=== PATIENT | female | born 1960 | race African-American/Black ===

== ENCOUNTER → 2017-10-01 | Outpatient (CLI) | payer OTHER ==
[~2017-10-01] MED LIST: AMLO10 PO; COZA100T PO; DOXA1 PO; LORT5TAB PO; POTA-267 PO; SULF-154 PO
[2017-10-01 10:24] LABS: HEMATOCRIT 38.8 % (35.0-46.0); MEAN CELL VOLUME 78.8 FL (80.0-100.0); MEAN CORPUSCULAR HEMOGLOBIN 25.8 PG (27.0-34.0); MEAN CORPUSCULAR HGB CONC 32.8 % (32.0-36.0); PLATELET COUNT 275 TH/MM3 (150-450); RED BLOOD COUNT 4.93 MIL/MM3 (4.00-5.30); RED CELL DISTRIBUTION WIDTH 14.8 % (11.6-17.2); REVIEW FLAG FINAL; WHITE BLOOD COUNT 6.6 TH/MM3 (4.0-11.0)
[2017-10-01 11:27] LABS: ANION GAP 7 MEQ/L (5-15); AST (GOT) 14 U/L (15-37); BICARBONATE 29.7 MEQ/L (21.0-32.0); BLOOD UREA NITROGEN 22 MG/DL (7-18); CHLORIDE 103 MEQ/L (98-107); GLOMERULAR FILTRATION RATE 84 ML/MIN (>89); GLUCOSE,FASTING 76 MG/DL (74-99); POTASSIUM 3.3 MEQ/L (3.5-5.1); SODIUM (NA) 140 MEQ/L (136-145)
[2017-10-01 11:32] LABS: BACTERIA, URINE RARE /hpf; BLOOD, URINE NEG (NEG); GLUCOSE,URINE NEG (NEG); KETONE, URINE NEG (NEG); MUCUS URINE FEW /lpf (OCC); NITRITE,URINE NEG (NEG); SQUAMOUS EPITHELIAL CELL URINE 26 /hpf (0-5); URINE COLOR YELLOW (YELLW/STRAW)
[2017-10-01 11:55] LABS: ALKALINE PHOSPHATASE 107 U/L (45-117); ALT (GPT) 15 U/L (10-53); THYROXINE (T4) 11.6 MCG/DL (4.8-13.9); TOTAL BILIRUBIN ADULT 0.4 MG/DL (0.2-1.0)
== END ==
LOC: CLAB 08:53
PROVIDERS: ATTEND Internal Medicine
DX: E78.5 Hyperlipidemia, unspecified (principal); I10 Essential (primary) hypertension; D64.9 Anemia, unspecified; R73.02 Impaired glucose tolerance (oral); R63.5 Abnormal weight gain; M81.8 Other osteoporosis without current pathological fracture
CPT/HCPCS: 36415; 80053; 81001; 82607; 82746; 84436; 84443; 85027

== ENCOUNTER 2018-05-03 22:15 | Inpatient (IN) ==
[2018-05-03] MEDS ORDERED: Heparin 10,000 UNITS/10 ML Vial (for IV use) IV.PUSH STA (22:26)
[2018-05-03] MEDS ORDERED: Nitroglycerin Drip Premix 50 MG/250 ML BOTTLE IV.CONT PRN (22:26)
[2018-05-03] MEDS ORDERED: Sod Chloride 0.9% Inj 1,000 ML IV.SIG SCH (22:30)
--- NOTE | 2018-05-03 22:36 | ED ---
HPI General Chief Complaint: STEMI Alert Stated Complaint: STEMI/EVAC Time Seen by Provider: 05/03/18 22:22 Source: patient and EMS Mode of arrival: EMS Limitations: no limitations History of Present Illness HPI narrative: The patient is a 57 year old female who presents to the [facility] emergency department with a history of chest pain that began at 11:30 PM today. The details regarding the chest pain are as below. The patient denies any prior history of myocardial infarction. She reports a prior history of hypertension, prior history of diabetes, however she had a gastric bypass done in 2007 and lost 100 pounds. She reports that she no longer is treated for diabetes. She denies any prior history of hyperlipidemia. The patient reports that the pain became much worse around 30 minutes prior to arrival. She reports that the pain radiates the left arm. She denies having any shortness of breath. She does report having some diaphoresis associated with this. She reports that she has had a stress test done in the past, however it was many years ago. She reports that her primary care physician is Dr. Celestino Waddell. complaint: chest pain Complete Quality Measures for STEMI Alert Patients Onset (ago): hour(s) Duration: intermittent Onset: during rest Pain location: left chest Severity: severe Severity scale (1-10): 10 Quality: heaviness Pain radiation: LUE Relieving factors: nothing Exacerbating factors: exertion Associated symptoms: nausea and diaphoresis Treatments prior to arrival chest pain: aspirin, nitroglycerin and oxygen Related Data On Oral Contraceptives: No Home Medications Medication Instructions Recorded Confirmed amlodipine 10 mg PO DAILY 05/03/18 05/03/18 doxazosin 8 mg PO DAILY 05/03/18 05/03/18 losartan 100 mg PO DAILY 05/03/18 05/03/18 potassium chloride 10 meq PO TID 05/03/18 05/03/18 triamterene-hydrochlorothiazid 1 cap PO DAILY 05/03/18 05/03/18 Allergies Allergy/AdvReac Type Severity Reaction Status Date / Time lisinopril Allergy Severe Swelling Verified 05/04/18 09:14 of Lip/Tongue/Throat Review of Systems ROS Unobtainable All other systems reviewed negative except as stated in HPI Constitutional Denies fever(s) Eyes Denies change in vision ENT Denies headache(s) and Denies nasal congestion Cardiovascular Reports chest pain and Reports radiating jaw, neck or arm pain Respiratory Denies dyspnea Gastrointestinal Denies abdominal pain, Denies diarrhea, Reports nausea and Denies vomiting Genitourinary Denies difficulty voiding Musculoskeletal Denies myalgias Integumentary/Breasts Denies rash Neurologic Denies headache(s) and Denies weakness Psychiatric Denies depression Endocrine Denies polyuria Hematologic/Lymphatic Denies easy bruising PMFSH Social History Social History Substance History: No History of Abuse Second Hand Smoke Exposure: No Smoking Status: Never smoker How Often Do You Have a Drink Containing Alcohol: Never Recent Travel in [facility] within the Last 8 Weeks: No Recent Out of Country Travel within the Last 8 Weeks: No Immunization History Tetanus Immunization: Unable to Assess Hx Influenza Vaccine This Season: Unable to Assess Exam Const General: cooperative, acute distress (Intermittently moaning on arrival) and well hydrated Nutritional Appearance: well nourished Orientation: oriented x3 HENMT Head: normocephalic and atraumatic Nose: no nasal discharge and no epistaxis Mouth: moist mucous membranes Eyes Sclera: normal sclerae Pupils: PERRL Neck Neck: trachea midline and no JVD Resp Effort & Inspection: no use of accessory muscles Auscultation: clear to auscultation bilaterally Cardio Rate: regular rate Rhythm: regular rhythm Heart Sounds: no murmurs GI Inspection: non-distended Palpation: soft, no hepatosplenomegaly and nontender Auscultation: normal bowel sounds Skin General: dry skin (warm) Neuro General: alert and awake Cranial Nerves: CN's II-XI intact bilaterally Speech: speech normal Motor: no movement abnormalities noted Sensory Exam: no sensory deficits noted Extrem General: normal to inspection, no clubbing, no cyanosis, no edema and other (No calf tenderness on palpation.) Psych Mood: congruent mood Affect: normal affect Judgment: judgment good Course Hospital Course: During the course of the patient's emergency department visit, the patient's history, examination, and differential diagnosis were reviewed with the patient. The patient was placed on a engraver machine with oximetry and frequent blood pressure monitoring. The patient had IV access obtained and blood work sent for analysis. The patient had a EKG done on arrival that shows an ST segment elevation RI in the inferior leads with reciprocal changes noted of depression and V2, aVL. A STEMI alert was called upon the patient's arrival based on the initial EKG done by ambulance services which was again confirmed by EKG done at this facility. The patient was provided by ambulance services prior to arrival aspirin 324 mg p.o. 1, sublingual nitroglycerin 3. While in nitroglycerin drip is being obtained for the patient the patient was given a sublingual nitroglycerin. The patient will be given heparin per RI protocol. I spoke to Dr. hinojosa at the provider relations specialist python django developer for STEMI alerts and he plans to take the patient to the to the cardiac catheterization lab emergently. I spoke to him regarding this patient's case at approximately 22:24. Reevaluation(s) Reevaluation #1: The patient was continued to have pain. The patient received a sublingual nitroglycerin and was in the process of having a nitroglycerin drip started and titrated slowly as the patient's blood pressure on initial arrival is 123/81. Time: 22:30 Consultations Consultation #1: The patient's case including history, pertinent physical examination findings, and laboratory studies were discussed with Dr. Bustamante. Time: 22:24 Initial Documented Vital Signs Pulse Oximetry 99 05/03/18 22:17 Last Documented Vital Signs Temperature 97.3 F L 05/04/18 16:00 Pulse Rate 63 05/04/18 16:00 Respiratory Rate 23 05/04/18 16:00 Blood Pressure 132/82 05/04/18 16:00 Pulse Oximetry 96 05/04/18 16:00 Critical Care Time Critical Care Time: Yes Total Critical Care Time: 32 Attestation: Aggregate critical care time was 32 minutes. Time to perform other separately billable procedures was not included in the critical care time. My time did not include minutes spent treating any other patients simultaneously or on activities that did not directly contribute to the patient's treatment. The services I provided to this patient were to treat and/or prevent clinically significant deterioration that could result in: Cardiovascular collapse from cardiac arrhythmia due to cardiac ischemia, versus hypotension from nitroglycerin, versus respiratory failure I provided critical care services requiring my management, as noted below: Chart data review, documentation time, medication orders and management, vital sign assessments/reviewing monitor data, ordering and reviewing lab tests, ordering and interpreting/reviewing x-rays and diagnostic studies, care of the patient and discussion of the patient with the admitting physicians. Medical Decision Making MDM Narrative Medical decision making narrative: The patient's i-STAT with creatinine reveals a sodium of 143, potassium 3.3, chloride 104, BUN 30, glucose 164, hemoglobin 11.2, creatinine 0.9.PT 10.3, PTT 24.1, troponin I 0.09, CPK 120 chest x-ray showed basilar airspace disease, likely related to atelectasis, no other acute abnormality. The patient was taken to the cardiac catheterization lab urgently as a STEMI. Differential Diagnosis Differential Diagnosis: STEMI alert, versus aortic dissection, versus pulmonary embolism, versus non-STEMI Medical Records Medical records reviewed: Yes I reviewed the patient's medical records. Lab Data Lab results reviewed: Yes I reviewed the patient's lab results. Result diagrams: 05/04/18 03:17 05/04/18 03:17 Lab Results 05/03/18 05/03/18 05/03/18 Range/Units 22:23 22:23 22:25 WBC (4.0-11.0) th/mm3 RBC (4.00-5.30) mil/mm3 Hgb (11.6-15.3) gm/dL POC Hgb (Calc) 11.2 L (11.6-15.3) g/dL Hct (35.0-46.0) % POC Hct 33.0 L (35-46.0) % MCV (80.0-100.0) fL MCH (27.0-34.0) pg MCHC (32.0-36.0) % RDW (11.6-17.2) % Plt Count (150-450) th/mm3 MPV (7.0-11.0) fL PT 10.3 (9.8-11.6) sec INR 1.0 Ratio APTT 24.1 L (24.3-30.1) sec Puncture Site Patient Temperature O2 Saturation (90-100) % ABG pH (7.380-7.420) ABG pCO2 (38-42) mmHg ABG pO2 (61-120) mmHG ABG HCO3 (22-26) mmol/L ABG O2 Content (12.0-20.0) Vol % ABG Base Excess (-2-2) mmol/L ABG Methemoglobin (0-2) % Cooper Test Hemoglobin (12.0-16.0) G/DL Carboxyhemoglobin (0-4) % O2 Delivery Device Vent Setting Inspired O2 % Critical Value POC Sodium 143 (137-144) mmol/L Sodium (136-145) meq/L POC Potassium 3.3 L (3.6-5.0) mmol/L Potassium (3.5-5.1) meq/L POC Chloride 104 (102-111) mmol/L Chloride (98-107) meq/L Carbon Dioxide (21.0-32.0) meq/L Anion Gap (5-15) meq/L POC BUN 30 H (5-21) mg/dL BUN (7-18) mg/dL Creatinine (0.50-1.00) mg/dL POC Creatinine 0.9 (0.6-1.3) mg/dL Estimated GFR (>89) mL/min POC Glucose 164 H (68-110) mg/dL Random Glucose (74-106) mg/dL Calcium 8.0 L (8.5-10.1) mg/dL Magnesium 2.7 H (1.5-2.5) mg/dL Total Bilirubin (0.2-1.0) mg/dL AST (15-37) U/L ALT (10-53) U/L Alkaline Phosphatase (45-117) U/L Total Creatine Kinase 120 (26-192) U/L CK-MB (CK-2) 1.6 (0.5-3.6) ng/mL Troponin I 0.09 H (0.02-0.05) ng/mL B-Natriuretic Peptide (0-100) pg/mL Total Protein (6.4-8.2) g/dL Albumin (3.4-5.0) g/dL Urine Color (Yellw/Straw) Urine Clarity (Clear) Urine pH (5.0-8.5) Ur Specific Dustin (1.002-1.035) Urine Protein (Neg-Trace) mg/dL Urine Glucose (UA) (Negative) mg/dL Urine Ketones (Negative) mg/dL Urine Occult Blood (Negative) Urine Nitrate (Negative) Urine Bilirubin (Negative) Urine Urobilinogen (Less than 2) mg/dL Ur Leukocyte Esterase (Negative) Urine RBC (0-3) /hpf Urine WBC (0-5) /hpf Ur Squamous Epith Cells (0-5) /hpf Urine Mucus (Occasional) /lpf Micro UA Comment Urine Culture Comments Nasal Screen MRSA (PCR) (Negative) 05/03/18 05/04/18 05/04/18 Range/Units 22:25 01:53 02:25 WBC (4.0-11.0) th/mm3 RBC (4.00-5.30) mil/mm3 Hgb (11.6-15.3) gm/dL POC Hgb (Calc) (11.6-15.3) g/dL Hct (35.0-46.0) % POC Hct (35-46.0) % MCV (80.0-100.0) fL MCH (27.0-34.0) pg MCHC (32.0-36.0) % RDW (11.6-17.2) % Plt Count (150-450) th/mm3 MPV (7.0-11.0) fL PT (9.8-11.6) sec INR Ratio APTT (24.3-30.1) sec Puncture Site Right radial Patient Temperature 98.6 O2 Saturation 96 (90-100) % ABG pH 7.32 L (7.380-7.420) ABG pCO2 48 H (38-42) mmHg ABG pO2 145 H (61-120) mmHG ABG HCO3 24 (22-26) mmol/L ABG O2 Content 15.2 (12.0-20.0) Vol % ABG Base Excess -1.5 (-2-2) mmol/L ABG Methemoglobin 1.6 (0-2) % Cooper Test Present Hemoglobin 11.1 L (12.0-16.0) G/DL Carboxyhemoglobin 0.5 (0-4) % O2 Delivery Device Ventilator Vent Setting 18/470/it1.0/8peep Inspired O2 100 % Critical Value No POC Sodium (137-144) mmol/L Sodium (136-145) meq/L POC Potassium (3.6-5.0) mmol/L Potassium (3.5-5.1) meq/L POC Chloride (102-111) mmol/L Chloride (98-107) meq/L Carbon Dioxide (21.0-32.0) meq/L Anion Gap (5-15) meq/L POC BUN (5-21) mg/dL BUN (7-18) mg/dL Creatinine (0.50-1.00) mg/dL POC Creatinine (0.6-1.3) mg/dL Estimated GFR (>89) mL/min POC Glucose (68-110) mg/dL Random Glucose (74-106) mg/dL Calcium (8.5-10.1) mg/dL Magnesium (1.5-2.5) mg/dL Total Bilirubin (0.2-1.0) mg/dL AST (15-37) U/L ALT (10-53) U/L Alkaline Phosphatase (45-117) U/L Total Creatine Kinase (26-192) U/L CK-MB (CK-2) (0.5-3.6) ng/mL Troponin I (0.02-0.05) ng/mL B-Natriuretic Peptide 6 (0-100) pg/mL Total Protein (6.4-8.2) g/dL Albumin (3.4-5.0) g/dL Urine Color (Yellw/Straw) Urine Clarity (Clear) Urine pH (5.0-8.5) Ur Specific Dustin (1.002-1.035) Urine Protein (Neg-Trace) mg/dL Urine Glucose (UA) (Negative) mg/dL Urine Ketones (Negative) mg/dL Urine Occult Blood (Negative) Urine Nitrate (Negative) Urine Bilirubin (Negative) Urine Urobilinogen (Less than 2) mg/dL Ur Leukocyte Esterase (Negative) Urine RBC (0-3) /hpf Urine WBC (0-5) /hpf Ur Squamous Epith Cells (0-5) /hpf Urine Mucus (Occasional) /lpf Micro UA Comment Urine Culture Comments Nasal Screen MRSA (PCR) Not detected (Negative) 05/04/18 05/04/18 05/04/18 Range/Units 03:17 03:17 04:15 WBC 8.2 (4.0-11.0) th/mm3 RBC 4.52 (4.00-5.30) mil/mm3 Hgb 11.7 (11.6-15.3) gm/dL POC Hgb (Calc) (11.6-15.3) g/dL Hct 36.0 (35.0-46.0) % POC Hct (35-46.0) % MCV 79.6 L (80.0-100.0) fL MCH 25.8 L (27.0-34.0) pg MCHC 32.4 (32.0-36.0) % RDW 15.6 (11.6-17.2) % Plt Count 219 (150-450) th/mm3 MPV 7.2 (7.0-11.0) fL PT (9.8-11.6) sec INR Ratio APTT (24.3-30.1) sec Puncture Site Patient Temperature O2 Saturation (90-100) % ABG pH (7.380-7.420) ABG pCO2 (38-42) mmHg ABG pO2 (61-120) mmHG ABG HCO3 (22-26) mmol/L ABG O2 Content (12.0-20.0) Vol % ABG Base Excess (-2-2) mmol/L ABG Methemoglobin (0-2) % Cooper Test Hemoglobin (12.0-16.0) G/DL Carboxyhemoglobin (0-4) % O2 Delivery Device Vent Setting Inspired O2 % Critical Value POC Sodium (137-144) mmol/L Sodium 144 (136-145) meq/L POC Potassium (3.6-5.0) mmol/L Potassium 2.8 L* (3.5-5.1) meq/L POC Chloride (102-111) mmol/L Chloride 110 H (98-107) meq/L Carbon Dioxide 25.0 (21.0-32.0) meq/L Anion Gap 9 (5-15) meq/L POC BUN (5-21) mg/dL BUN 24 H (7-18) mg/dL Creatinine 0.89 (0.50-1.00) mg/dL POC Creatinine (0.6-1.3) mg/dL Estimated GFR 79 L (>89) mL/min POC Glucose (68-110) mg/dL Random Glucose 238 H (74-106) mg/dL Calcium 7.6 L (8.5-10.1) mg/dL Magnesium (1.5-2.5) mg/dL Total Bilirubin 0.2 (0.2-1.0) mg/dL AST 65 H (15-37) U/L ALT 25 (10-53) U/L Alkaline Phosphatase 93 (45-117) U/L Total Creatine Kinase (26-192) U/L CK-MB (CK-2) (0.5-3.6) ng/mL Troponin I (0.02-0.05) ng/mL B-Natriuretic Peptide (0-100) pg/mL Total Protein 7.1 (6.4-8.2) g/dL Albumin 3.4 (3.4-5.0) g/dL Urine Color Yellow (Yellw/Straw) Urine Clarity Clear (Clear) Urine pH 5.0 (5.0-8.5) Ur Specific Dustin Greater than 1.060 H (1.002-1.035) Urine Protein Negative (Neg-Trace) mg/dL Urine Glucose (UA) Negative (Negative) mg/dL Urine Ketones Negative (Negative) mg/dL Urine Occult Blood Small H (Negative) Urine Nitrate Negative (Negative) Urine Bilirubin Negative (Negative) Urine Urobilinogen Less than 2 (Less than 2) mg/dL Ur Leukocyte Esterase Negative (Negative) Urine RBC 1 (0-3) /hpf Urine WBC Less than 1 (0-5) /hpf Ur Squamous Epith Cells 2 (0-5) /hpf Urine Mucus Few H (Occasional) /lpf Micro UA Comment Cath-culture not ind Urine Culture Comments Cath-cult not ind Nasal Screen MRSA (PCR) (Negative) 05/04/18 05/04/18 Range/Units 12:18 17:29 WBC (4.0-11.0) th/mm3 RBC (4.00-5.30) mil/mm3 Hgb (11.6-15.3) gm/dL POC Hgb (Calc) (11.6-15.3) g/dL Hct (35.0-46.0) % POC Hct (35-46.0) % MCV (80.0-100.0) fL MCH (27.0-34.0) pg MCHC (32.0-36.0) % RDW (11.6-17.2) % Plt Count (150-450) th/mm3 MPV (7.0-11.0) fL PT (9.8-11.6) sec INR Ratio APTT (24.3-30.1) sec Puncture Site Patient Temperature O2 Saturation (90-100) % ABG pH (7.380-7.420) ABG pCO2 (38-42) mmHg ABG pO2 (61-120) mmHG ABG HCO3 (22-26) mmol/L ABG O2 Content (12.0-20.0) Vol % ABG Base Excess (-2-2) mmol/L ABG Methemoglobin (0-2) % Cooper Test Hemoglobin (12.0-16.0) G/DL Carboxyhemoglobin (0-4) % O2 Delivery Device Vent Setting Inspired O2 % Critical Value POC Sodium (137-144) mmol/L Sodium (136-145) meq/L POC Potassium (3.6-5.0) mmol/L Potassium (3.5-5.1) meq/L POC Chloride (102-111) mmol/L Chloride (98-107) meq/L Carbon Dioxide (21.0-32.0) meq/L Anion Gap (5-15) meq/L POC BUN (5-21) mg/dL BUN (7-18) mg/dL Creatinine (0.50-1.00) mg/dL POC Creatinine (0.6-1.3) mg/dL Estimated GFR (>89) mL/min POC Glucose 114 H 105 (68-110) mg/dL Random Glucose (74-106) mg/dL Calcium (8.5-10.1) mg/dL Magnesium (1.5-2.5) mg/dL Total Bilirubin (0.2-1.0) mg/dL AST (15-37) U/L ALT (10-53) U/L Alkaline Phosphatase (45-117) U/L Total Creatine Kinase (26-192) U/L CK-MB (CK-2) (0.5-3.6) ng/mL Troponin I (0.02-0.05) ng/mL B-Natriuretic Peptide (0-100) pg/mL Total Protein (6.4-8.2) g/dL Albumin (3.4-5.0) g/dL Urine Color (Yellw/Straw) Urine Clarity (Clear) Urine pH (5.0-8.5) Ur Specific Dustin (1.002-1.035) Urine Protein (Neg-Trace) mg/dL Urine Glucose (UA) (Negative) mg/dL Urine Ketones (Negative) mg/dL Urine Occult Blood (Negative) Urine Nitrate (Negative) Urine Bilirubin (Negative) Urine Urobilinogen (Less than 2) mg/dL Ur Leukocyte Esterase (Negative) Urine RBC (0-3) /hpf Urine WBC (0-5) /hpf Ur Squamous Epith Cells (0-5) /hpf Urine Mucus (Occasional) /lpf Micro UA Comment Urine Culture Comments Nasal Screen MRSA (PCR) (Negative) Imaging Data Radiologist's impression: ITS Impressions Chest X-Ray 05/03/18 22:18 CONCLUSION: Minimal basilar atelectasis. No effusion or pneumothorax. Chest X-Ray 05/04/18 01:53 CONCLUSION: 1. ET tube near the fay. 2. NGT beyond the GE junction. 3. Patchy airspace disease in the right lower lung zone, likely atelectasis. ECG Data Attestation: I personally reviewed and interpreted this ECG as follows: Interpretation: The patient had an EKG done she has a sinus rhythm heart rate is 70, QRS duration 117. The patient has acute ST segment elevation noted in lead with T-wave inversions in leads I, aVL, V1, V2, downsloping ST segments in leads I, aVL, ST segment depression in V2. Discharge Plan Discharge Disposition Patient Disposition: 30 Still Patient Discharge Details Discharge Problem: ST elevation myocardial infarction (STEMI) Physicians Team ED Provider: Jammie St Primary Care Provider: Hugo Waddell Attending Provider: Salome Goss Other Providers: Salome Goss Status ED Status: Discharged Discharge Information Discharge Date/Time: 05/03/18 23:52
--- NOTE | 2018-05-03 22:46 | XR ---
EXAM DATE: 05/03/2018 10:36 PM EDT AGE/SEX: 57 years / Female INDICATIONS: STEMI alert. Chest pain. CLINICAL DATA: This is the patient's initial encounter. Patient reports that signs and symptoms have been present for 1 day and indicates a pain score of 10/10. MEDICAL/SURGICAL HISTORY: None. None. COMPARISON: No prior exams available for comparison. FINDINGS: A single AP view of the chest demonstrates the lungs to be symmetrically aerated without evidence of mass, infiltrate or effusion. Minimal basilar atelectasis. The cardiomediastinal contours are unrema rkable. Osseous structures are intact. CONCLUSION: Minimal basilar atelectasis. No effusion or pneumothorax. Electronically signed by: Gutierrez Garcia MD 05/03/2018 10:45 PM EDT
[2018-05-03 22:48] LABS: Activated Partial Thrombo Time 24.1 sec (24.3-30.1)
[2018-05-03 22:49] LABS: Prothrombin Time 10.3 sec (9.8-11.6)
[2018-05-03] MEDS ORDERED: Heparin/NS PF Inj 1,000 ML ONE (22:53)
[2018-05-03] MEDS ORDERED: fentaNYL Citrate Inj 100 MCG/2 ML Ampul ONE (22:54)
[2018-05-03] MEDS ORDERED: Heparin 10,000 UNITS/10 ML Vial (for IV use) ONE (22:55)
[2018-05-03] MEDS ORDERED: Lidocaine PF 1% Inj 30 ML Vial ONE (22:59)
--- NOTE | 2018-05-03 23:42 | MB ---
cc: Salazar Bustamante MD DATE: 05/03/2018 HISTORY OF PRESENT ILLNESS: Ms. Renee is a 57-year-old black female, [employer] employee, who presented to [place] [facility] with substernal chest discomfort, which started at 11:30 this morning. She has history of hypertension and diabetes. She had gastric bypass in 2007 and lost 100 pounds. Her diabetes is now improved. The pain was substernal, radiating into the left arm. She had diaphoresis. She had stress test many years ago. Her physician is Dr. Hugo Waddell. PAST MEDICAL HISTORY: Positive for hypertension, DM, gastric bypass, hernia repair, surgical manipulation of ankle joint. MEDICATIONS: Potassium chloride, amlodipine, losartan, doxazosin, triamterene/hydrochlorothiazide. ALLERGIES: NONE. SOCIAL HISTORY: The patient does not smoke. She does not drink alcohol. FAMILY HISTORY: Negative for heart disease. REVIEW OF SYSTEMS: Otherwise negative. PHYSICAL EXAMINATION: VITAL SIGNS: Blood pressure 123/81, pulse 70 and regular. HEENT: Negative. PULMONARY: Lungs clear. HEART: Regular, no murmur or gallop. ABDOMEN: Soft, morbidly obese. EXTREMITIES: With 1+ edema, 1+ pulses. NEUROLOGIC: Grossly nonfocal. STUDY: EKG is reviewed and showed normal sinus rhythm, inferior ST elevations, with reciprocal ST changes. LABORATORY DATA: Hemoglobin 11.2. INR 1.0. Potassium 3.3, creatinine 0.9. DIAGNOSES: 1. Acute inferior wall myocardial infarction. 2. Hypertension. 3. Morbid obesity. 4. Status post gastric bypass. DISPOSITION: Ms. Renee will undergo emergent cardiac catheterization and coronary intervention. She understands the risks and benefits, and wishes to proceed. MD NIKO Roa/RACHID , 11:17 PM , 11:40 PM MTDD
[2018-05-03] MEDS ORDERED: Tirofiban Inj 12,500 MCG/250 ML PLAST..BAG ONE (23:48)
[2018-05-04 01:09] LABS: Troponin I 0.09 ng/mL (0.02-0.05)
[2018-05-04 01:11] LABS: Creatine Kinase 120 U/L (26-192); Magnesium 2.7 mg/dL (1.5-2.5)
[2018-05-04 01:23] LABS: Creatine Kinase MB 1.6 ng/mL (0.5-3.6)
[2018-05-04] MEDS ORDERED: fentaNYL Citrate Inj 100 MCG/2 ML Ampul ONE (01:27)
[2018-05-04] MEDS ORDERED: Misc Info for Pharmacy OTHER STA (01:28)
--- NOTE | 2018-05-04 01:40 | CATHPROC ---
[facility] HIS Report Study Information Study Number Admission Scheduled Start Study Start [id number] May 03 2018 10:15PM 05/03/2018 May 03 2018 11:00PM [place] [facility] Cardiac Catheterization Admit Source Facility Department Emergency department [facility] - [employer] Foreman Physician and Clinical Staff Initial Salazar King Polymer Tester Mami Hogan RN Circulator Hesher, Sharon,Maria Eugenia Avina RN Other cathlab, cathlab Other Anesthesia, OUT AND OUT CIGAR MAKER HAND Recorder Catalina Turner,COLORING ROOM MAN TECH2 Scrub Ivania HoangRT(R) Procedures Performed Procedure Location (Site) Vessel Name Angiogram LV LV Ventricle Coronary Angiograms LCA Left Coronary Coronary Angiograms RCA Right Coronary PTCA RCA Dist Right Coronary PTCA RCA Mid Right Coronary Stent RCA Mid Right Coronary Wire insertion Fem Art (right) Femoral Art Equipment Time Scientific Software Developer Description Size Mfg Part Number Used/Scraped WIRE, BALANCE MIDDLEWEIGHT [id number] 23:27 [employer] 190CM Used 190CM *[id number] WIRE, WHISPER W/HYDROCOAT [id number] 23:38 [employer] 190CM Used 190CM *[id number] TRANSDUCER, TRUWAVE [id number] 23:22 PABLO DE JESUS * Used W/STOCKCOCK *[id number] *[id number] [id number] *[id number] 534-548T *[id number] 534-520T *[id number] 534-552S *[id number] 00:18 DAIG/[employer]. [employer]OL[employer]ICAL ANGIOSEAL, FR6 VIP FR 6 Used *[id number] 23:22 [employer] BLANKET,WARM AIR CCL * Used *[id number] 23:22 [employer] PACK, CCL CUSTOM * Used *[id number] 23:22 [employer] PACER PEN, SKIN DUAL W/ RULER * Used *[id number] 23:39 MED[employer]IC BALLOON, 2.0 X 12MM EUPHORA 12MM Used *[id number] BALLOON, 5.0 X 12MM NC [id number] 00:08 MEDTRONIC 12MM Used EUPHORA *[id number] EXPORTAP 23:41 [employer] CATHETER, EXPORT ASPIRATON Used *[id number] 00:05 [employer]IC STENT, 4.0 22 INTEGRITY 4.0 22 Used *[id number] [id number] 23:56 [employer] MEDICAL 30 EFFIE INDEFLATOR Used *[id number] 23:31 [employer] MEDICAL SHEATH, FR6.5 PRELUDE 11CM FR 6.5 038ACT Used *[id number] 23:22 [employer] MEDICAL WIRE, 3MMJ .035 180CM 180CM Used *[id number] PROBE COVER, STERILE [id number] 23:22 [employer] MEDICAL * Used ULTRASOUND W/ GEL *[id number] 23:22 NAMIC MANIFOLD, 4 PORT * Used *[id number] 23:22 NAMIC TUBING, HIGH PRESSURE 48" 48" Used *[id number] 23:22 NYCOMED OMNIPAQUE, 350 MG, 150ML 150ML [id number] Used 00:27 [employer]ED OMNIPAQUE, 350 MG, 150ML 150ML [id number] Used 00:27 [employer]ED OMNIPAQUE, 350 MG, 50ML 50ML [id number] Used [id number] 23:22 TERUMO MEDICAL SHEATH, FR5 TERUMO (10CM) FR 5 Used *[id number] WIRE, RUNTHROUGH NS FLOPPY [id number] 23:38 [employer] MEDICAL 180CM Used .014 180CM *[id number] Equipment Model, Serial, Lot Number and Expiration Data Description Model Number Serial Number Lot Number Expiration Date ANGIOSEAL, FR6 VIP [id number] 11-26-2018 CATHETER, EXPORT ASPIRATON [id number] 01-21-2020 STENT, 4.0 22 INTEGRITY [id number] 01-15-2020 History: Risk Factors Family History of Hypertension Dyslipidemia Previous AK Previous Heart Failure Premature CAD Yes No No No No Prior Valve Prior PCI Prior CABG Surgery No No No Cerebrovascular Peripheral Artery Chronic Lung On Dialysis Diabetes Diabetes Therapy Disease Disease Disease No No No No Yes Oral History: Stress Tests Stress or Imaging Studies Performed No History: Other Current Smoker No Labs Hgb (g/dl) Hct (%) 11.60-17.00 35.00-51.00 11.2 33 Glucose (mg/dl) BUN (mg/dl) 74.00-106.00 7.00-18.00 164 30 Na (meq/l) K (meq/l) Cl (meq/l) 136.00-145.00 3.50-5.10 98.00-107.00 143 3.3 104 Medication Medication Total Dose (Bolus/Oral) Medication Total Dosage/Unit 1% XYLOCAINE 20 mL AGGRASTAT BOLUS 635 mL AMIODARONE 300 mg EPINEPHRINE 10/999 0.3 mg FENTANYL 100 mcg HEPARIN 2000 units LIDOCAINE 30 mg OXYGEN 17 l/min VERSED 3 mg Medications (Bolus/Oral) Medication Time Given Dosage/Unit Administered By Reason OXYGEN 05/03/2018 11:15:20 PM 2 l/min Patient arrived on 2 l/min OXYGEN via Nasal. FENTANYL 05/03/2018 11:21:36 PM 25 mcg Hesher, Ivania 25 mcg FENTANYL given in lab by Ivania Glass RN in Left Hand via Peripheral IV. Ordered by Salazar Bustamante. 1% XYLOCAINE 05/03/2018 11:22:09 PM 20 mL Patient arrived on 20 mL 1% XYLOCAINE via Subcutaneous. VERSED 05/03/2018 11:22:50 PM 1 mg Hes, Ivania 1 mg VERSED given in lab by Ivania Glass RN in Left Hand via Peripheral IV. Ordered by Bradley Bustamante. OXYGEN 05/03/2018 11:24:36 PM 15 l/min Hesher Ivania 15 l/min OXYGEN given in lab by Ivania Glass RN via Nasal. Ordered by Salazar Bustamante. HEPARIN 05/03/2018 11:33:23 PM 2000 units Lizandro Glasson 2000 units HEPARIN given in lab by Ivania Glass RN in Left Hand via Peripheral IV. Ordered by Salazar Schultz. VERSED 05/03/2018 11:43:26 PM 1 mg Hes, Ivania 1 mg VERSED given in lab by Ivania Glass RN in Left Hand via Peripheral IV. Ordered by Bradley Bustamante. AGGRASTAT BOLUS 05/03/2018 11:51:25 PM 635 mL Fletcherher, Ivania 635 mL AGGRASTAT BOLUS given in lab by Ivania Glass RN in Left Hand via Peripheral IV. Ordered by Salazar Bustamante. FENTANYL 05/03/2018 11:52:26 PM 25 mcg Fletcherher, Ivania 25 mcg FENTANYL given in lab by Ivania Glass RN in Left Hand via Peripheral IV. Ordered by Salazar Bustamante. FENTANYL 05/04/2018 12:09:32 AM 25 mcg Hesher, Ivania 25 mcg FENTANYL given in lab by Ivania Glass RN in Left Hand via Peripheral IV. Ordered by Salazar Bustamante. VERSED 05/04/2018 12:34:06 AM 1 mg Hesher, Ivania 1 mg VERSED given in lab by Ivania Glass RN in Left Hand via Peripheral IV. Ordered by Bradley Bustamante. FENTANYL 05/04/2018 12:35:15 AM 25 mcg Hesher, Ivania 25 mcg FENTANYL given in lab by Ivania Glass RN in Left Hand via Peripheral IV. Ordered by Salazar Bustamante. AMIODARONE 05/04/2018 1:00:10 AM 150 mg Quan, Ivania 150 mg AMIODARONE given in lab by Ivania Glass RN in Right Hand. Ordered by Salazar Bustamante. AMIODARONE 05/04/2018 1:03:21 AM 150 mg Hesher, Ivania 150 mg AMIODARONE given in lab by Ivania Glass RN in Right Hand. Ordered by Salazar Bustamante. LIDOCAINE 05/04/2018 1:05:20 AM 30 mg Fletcherher, Ivania 30 mg LIDOCAINE given in lab by Ivania Glass RN in Right Hand via Peripheral IV. Ordered by Salazar Rahman. EPINEPHRINE 10/999 05/04/2018 1:15:52 AM 0.3 mg Fletcherher, Ivania 0.3 mg EPINEPHRINE 10/999 given in lab by Ivania Glass RN in Left Hand via Peripheral IV. Ordered by Salazra Bustamante. Medication (Drip) Medication Time Given Dosage/Unit Concentration/Unit Diluent (ml) Solution AGGRASTAT DRIP 05/03/2018 11:56:09 PM 0.15 mcg/kg/min 12.5 mg 250 NaCl .9 0.15 mcg/kg/min AGGRASTAT DRIP given in lab by Ivania Glass RN in Left Hand via Peripheral IV. Pum p/Drip Flow = 22.91 ml/hr using NaCl .9 with a concentration of 12.5 mg in 250 ml. Ordered by Salazar Bustamante. Amiodarone Drip 05/04/2018 1:22:11 AM 33 mL/hr 450 mL 250 NaCl .9 33 mL/hr Amiodarone Drip given in lab by Maria Eugenia Allison, RN in Right Hand via Peripheral IV. Pump/Dr ip Flow = 18.33 ml/hr using NaCl .9 with a concentration of 450 mL in 250 ml. Ordered by Salazar Bustamante. IV Solutions 05/03/2018 11:16:23 PM 0 mL (IV) 1000 NaCl .9 Patient arrived on IV Solutions in Left Hand via Peripheral IV. Pump/Drip Flow = 20 ml/hr using NaCl .9. Initial Case Assessment Cardiovascular HR NIBP 82 100/59 Edema Present Skin color Skin None Normal Warm Dry Neurological State Oriented to time-place- Alert Moves all extremities person Respiration - General Respiration Rate SpO2 (%) O2 (lpm) (B/min) 13 98 2 Final Case Assessment Cardiovascular HR NIBP 87 120/60 Edema Present Skin color Skin None Normal Warm Dry Neurological State Oriented to time-place- Alert Moves all extremities person Respiration - General Respiration Rate SpO2 (%) (B/min) 13 95 Respiration - Ventilator Type Intubation Type ET(oral) Chronological Log Time Study Chronological Log 23:00:35 Emergency Room notified that [employer] Foreman is ready. 23:00:40 MD arrived. 23:04:05 Patient arrived via Bed. 23:04:06 Patient Name, D.O.B, / Armband Verified By R.N. Vitals capture started with the following parameters, Patient=Adult, Interval=5 min, Initial Pr wjxizf=944 mmHg, 23:13:16 Deflation Rate=5 mmHg, Cuff placed on Right Arm 23:14:03 NIBP STAT measurement started. 23:14:32 HR=73 bpm, PIBN=881/74 mmhg, LhW6=743.0 %, Resp=14 B/min, Pain=9, Ezequiel=10, Carey=2 23:15:20 Patient arrived on 2 l/min OXYGEN via Nasal. 23:16:05 Pressure channel 1 zeroed. 23:16:14 Consent signed by the physician and the patient and verified by the [employer] Foreman staff. 23:16:15 Pre-op and post- op instructions given; patient acknowledges understanding of instructions. 23:16:17 Patient has been NPO for More than 6Hrs. 23:16:18 Skin Breakdown- 23:16:20 Disposable Defibrillator Pads Placed On Patient. 23:16:21 A # 20 IV was noted in the Hand (right). Grade = 0 23:16:22 A # 18 IV was noted in the Hand (left). Grade = 0 23:16:23 Patient arrived on IV Solutions in Left Hand via Peripheral IV. Pump/Drip Flow = 20 ml/hr u sing NaCl .9. 23:16:24 History and physical on the chart or being dictated. 23:16:28 Reference ECG taken 23:20:15 Ventricular Fibrillation noted. 23:20:20 Patient defibrillated at 200 joules. The ECG rhythm was noted as V-Fib. 23:20:22 HR=82 bpm, RIPF=415/59 mmhg, SpO2=98.0 %, Resp=13 B/min, Pain=9, Ezequiel=10, Carey=2 Assessment: Initial Case, HR=82 BPM, OXJD=538/59 mmhg, Edema=None, Color=Normal, Skin = Warm, D ry 23:20:24 Neurological: State=Alert, Ox3, CHA Respiration: Resp=13 B/min, SpO2=98 %, O2=2 lpm 23:21:36 25 mcg FENTANYL given in lab by Ivaina Glass RN in Left Hand via Peripheral IV. Ordered by Salazar Bustamante. Time Out. Correct patient, correct procedure, correct physician, labs, allergies, and equipment verified with slab conditioner supervisor 23:22:07 team present. Fire risk assesment completed (see hard stop sheet for coding). Time Out Conc urred by and individual staff in procedure. 23:22:08 Case Start 23:22:09 Patient arrived on 20 mL 1% XYLOCAINE via Subcutaneous. 23:22:50 1 mg VERSED given in lab by Ivania Glass RN in Left Hand via Peripheral IV. Ordered by Salazar Frances. 23:23:48 Access site was Right Femoral Artery. 23:23:49 A SHEATH, FR5 TERUMO (10CM) FR 5 was advanced into the Fem Art (right) using the Modified S eldinger technique. 23:24:26 HR=63 bpm, AAIB=992/75 mmhg, SpO2=93.0 %, Resp=9 B/min, Pain=9, Ezequiel=10, Carey=2 23:24:36 15 l/min OXYGEN given in lab by Ivania Glass RN via Nasal. Ordered by Salazar Bustamante. A AR MOD INFINITI CATHETER FR 5 was advanced over a wire. OMNIPAQUE, 350 MG, 150ML 150ML was us ed for 23:25:08 injections. 23:25:29 The RCA was injected and visualized at various angles. OMNIPAQUE, 350 MG, 150ML 150ML used . 23:28:57 HR=57 bpm, YSFW=820/73 mmhg, KxX5=129.0 %, Resp=19 B/min, Pain=9, Ezequiel=10, Carey=2 23:29:15 Catheter was removed A JL 4.0 INFINITI CATHETER FR 5 was advanced over a wire. OMNIPAQUE, 350 MG, 150ML 150ML was us ed for 23:29:16 injections. 23:29:22 The LCA was injected and visualized at various angles. OMNIPAQUE, 350 MG, 150ML 150ML used . 23:30:23 Catheter was removed A SHEATH, FR6.5 PRELUDE 11CM FR 6.5 was exchanged in the Fem Art (right). This was necessary in order for 23:30:34 catheter support. 23:32:34 A AR 1 GUIDE CATHETER FR 6 was advanced over a wire. OMNIPAQUE, 350 MG, 150ML 150ML was use d for injections. 23:33:23 2000 units HEPARIN given in lab by Ivania Glass RN in Left Hand via Peripheral IV. Order ed by Salazar Bustamante. 23:33:58 HR=74 bpm, FQZY=710/77 mmhg, QmO6=714.0 %, Resp=10 B/min, Pain=9, Ezequiel=10, Carey=2 23:34:08 A WIRE, BALANCE MIDDLEWEIGHT 190CM 190CM was inserted via Fem Art (right). Recorded Pressure: Ao, HR=76, Condition=Condition 1 23:34:23 (Aorta) Ao 95/62/77 23:38:35 The previous wire was exchanged for a WIRE, RUNTHROUGH NS FLOPPY .014 180CM 180CM. 23:38:59 HR=86 bpm, HDIA=312/59 mmhg, EsO2=752.0 %, Resp=11 B/min, Pain=9, Ezequiel=10, Carey=2 23:40:51 Interventional wire has crossed the lesion 23:41:18 ACT (Normal Range 90-180) = 250 23:41:30 Aspiration catheter inserted 23:41:37 Aspiration in progress 23:43:26 1 mg VERSED given in lab by Ivania Glass RN in Left Hand via Peripheral IV. Ordered by Salazar Frances. 23:44:21 Aspiration Catheter was removed 23:44:31 HR=82 bpm, WZSI=631/64 mmhg, RxR3=998.0 %, Resp=18 B/min, Pain=9, Ezequiel=10, Carey=2 23:48:57 HR=86 bpm, LGXD=368/74 mmhg, UgU2=216.0 %, Resp=9 B/min, Pain=9, Ezequiel=10, Carey=2 23:49:03 Activated Clotting Time Drawn 23:49:37 Aspiration catheter inserted 23:50:40 Aspiration in progress 635 mL AGGRASTAT BOLUS given in lab by Ivania Glass RN in Left Hand via Peripheral IV. Order ed by Robby 23:51:25 Salazar. 23:52:26 25 mcg FENTANYL given in lab by Ivania Glass RN in Left Hand via Peripheral IV. Ordered by Salazar Bustamante. 23:52:59 Aspiration Catheter was removed 23:53:24 ACT (Normal Range 90-180) = 260 23:54:02 HR=85 bpm, SOJH=071/64 mmhg, SoE9=657.0 %, Resp=20 B/min, Pain=9, Ezeuqiel=10, Carey=2 A BALLOON, 2.0 X 12MM EUPHORA 12MM was inserted over WIRE, RUNTHROUGH NS FLOPPY .014 180CM 180C M via 23:54:38 the RCA Mid. A BALLOON, 2.0 X 12MM EUPHORA 12MM over a WIRE, RUNTHROUGH NS FLOPPY .014 180CM 180CM in the RC A Mid 23:55:48 was inflated using a 30 EFFIE INDEFLATOR at 8 effie for 30 sec. 0.15 mcg/kg/min AGGRASTAT DRIP given in lab by Ivania Glass RN in Left Hand via Peripheral I V. Pump/Drip Flow 23:56:09 = 22.91 ml/hr using NaCl .9 with a concentration of 12.5 mg in 250 ml. Ordered by You Bustamante ar. A BALLOON, 2.0 X 12MM EUPHORA 12MM over a WIRE, RUNTHROUGH NS FLOPPY .014 180CM 180CM in the RC A Mid 23:56:19 was inflated using a 30 EFFIE INDEFLATOR at 16 effie for 25 sec. A BALLOON, 2.0 X 12MM EUPHORA 12MM over a WIRE, RUNTHROUGH NS FLOPPY .014 180CM 180CM in the RC A Mid 23:56:50 was inflated using a 30 EFFIE INDEFLATOR at 16 effie for 10 sec. A BALLOON, 2.0 X 12MM EUPHORA 12MM over a WIRE, RUNTHROUGH NS FLOPPY .014 180CM 180CM in the RC A Mid 23:57:01 was inflated using a 30 EFFIE INDEFLATOR at 16 effie for 8 sec. 23:58:51 Balloon Removed. 23:58:59 HR=93 bpm, KBZG=353/73 mmhg, BgO7=644.0 %, Resp=12 B/min, Pain=9, Ezequiel=10, Carey=2 A BALLOON, 2.0 X 12MM EUPHORA 12MM was inserted over WIRE, RUNTHROUGH NS FLOPPY .014 180CM 180C M via 0:03:22 the RCA Mid. 0:04:04 HR=92 bpm, GJOE=105/77 mmhg, JyE9=070.0 %, Resp=13 B/min, Pain=9, Ezequiel=10, Carey=2 0:06:00 Balloon Removed. An STENT, 4.0 22 INTEGRITY 4.0 22 Bare Metal Stent was inserted through a AR 1 GUIDE CATHETER F R 6 over a 0:06:14 WIRE, RUNTHROUGH NS FLOPPY .014 180CM 180CM. A STENT, 4.0 22 INTEGRITY 4.0 22 was deployed using a 30 EFFIE INDEFLATOR at 19 atmospheres for 5 4 seconds in 0:07:13 the RCA Mid. 0:09:03 HR=82 bpm, RCDC=923/75 mmhg, GiZ4=343.0 %, Resp=14 B/min, Pain=9, Ezequiel=10, Carey=2 0:09:32 25 mcg FENTANYL given in lab by Ivania Glass, RN in Left Hand via Peripheral IV. Ordered b Salazar Brewer. 0:09:41 Delivery device removed A BALLOON, 5.0 X 12MM NC EUPHORA 12MM was inserted over WIRE, RUNTHROUGH NS FLOPPY .014 180CM 18 0CM 0:10:00 via the RCA Mid. A BALLOON, 5.0 X 12MM NC EUPHORA 12MM over a WIRE, RUNTHROUGH NS FLOPPY .014 180CM 180CM in the RCA 0:12:42 Mid was inflated using a 30 EFFIE INDEFLATOR at 12 effie for 15 sec. 0:14:04 HR=85 bpm, IDHA=299/70 mmhg, OrY6=551.0 %, Resp=30 B/min, Pain=9, Ezequiel=10, Carey=2 A BALLOON, 5.0 X 12MM NC EUPHORA 12MM over a WIRE, RUNTHROUGH NS FLOPPY .014 180CM 180CM in the RCA 0:14:40 Mid was inflated using a 30 EFFIE INDEFLATOR at 16 effie for 40 sec. A BALLOON, 5.0 X 12MM NC EUPHORA 12MM over a WIRE, RUNTHROUGH NS FLOPPY .014 180CM 180CM in the RCA 0:15:46 Mid was inflated using a 30 EFFIE INDEFLATOR at 16 effie for 30 sec. 0:16:52 Balloon Removed. 0:19:05 HR=86 bpm, UQNO=891/72 mmhg, ZoL7=294.0 %, Resp=15 B/min, Pain=9, Ezequiel=10, Carey=2 0:24:04 HR=93 bpm, WLMO=955/88 mmhg, MaF5=455.0 %, Resp=14 B/min, Pain=9, Ezequiel=10, Carey=2 0:24:29 Wire removed 0:24:52 Catheter was removed A [facility] GUIDE CATHETER FR 6 was advanced over a wire. OMNIPAQUE, 350 MG, 150ML 150ML was used for 0:25:23 injections. 0:26:43 The RCA was injected and visualized at various angles. OMNIPAQUE, 350 MG, 150ML 150ML used. 0:27:47 A WIRE, BALANCE MIDDLEWEIGHT 190CM 190CM was inserted via Fem Art (right). 0:29:36 HR=93 bpm, BBZZ=476/84 mmhg, YnP2=167.0 %, Resp=20 B/min, Pain=9, Ezequiel=10, Carey=2 A BALLOON, 2.0 X 12MM EUPHORA 12MM was inserted over WIRE, BALANCE MIDDLEWEIGHT 190CM 190CM via the 0:30:21 RCA Dist. A BALLOON, 2.0 X 12MM EUPHORA 12MM over a WIRE, BALANCE MIDDLEWEIGHT 190CM 190CM in the RCA Dist was 0:33:14 inflated using a 30 EFFIE INDEFLATOR at 2 effie for 30 sec. 0:33:55 Balloon Removed. 0:34:02 HR=86 bpm, SGIS=248/87 mmhg, TnH7=265.0 %, Resp=8 B/min, Pain=9, Ezequiel=10, Carey=2 0:34:06 1 mg VERSED given in lab by Ivania Glass, EULALIA in Left Hand via Peripheral IV. Ordered by Salazar Platt. 0:35:15 25 mcg FENTANYL given in lab by Ivania Glass RN in Left Hand via Peripheral IV. Ordered b Salazar Brewer. 0:36:01 Wire removed 0:36:13 Catheter was removed A PIGTAIL ANG. INFINITI CATHETER FR 5 was advanced over a wire. OMNIPAQUE, 350 MG, 150ML 150ML w as used 0:37:17 for injections. 0:39:03 LS=529 bpm, TQBQ=611/83 mmhg, WcR2=568.0 %, Resp=11 B/min, Pain=9, Ezequiel=10, Carey=2 0:39:40 The LV was injected at 10 cc/sec for a total of 30. OMNIPAQUE, 350 MG, 50ML 50ML used. Recorded Pressure: LV, Ao, HR=88, Condition=Condition 1 0:40:27 (Left Ventricle) LV 110/13/24, (Aorta) Ao 109/65/82 Recorded Pressure: LV, AY=251, Condition=Condition 1 0:40:30 (Left Ventricle) LV 107/17/23 0:41:14 Catheter was removed 0:41:31 An injection in the Fem Art (right) was made through the SHEATH, FR6.5 PRELUDE 11CM FR 6.5. 0:42:55 Catheter(s) removed without difficulty 0:42:57 ANGIOSEAL, FR6 VIP FR 6 placement in the Fem Art (right) 0:44:07 KI=345 bpm, ZHHP=024/84 mmhg, HxG9=476.0 %, Resp=16 B/min, Pain=9, Ezequiel=10, Carey=2 0:44:18 Case End (Physician broke scrub) 0:44:23 Sterile dressing applied to site 0:44:27 No case complications noted. 0:44:28 Cine recording checked. 0:47:09 Implantable Device card placed in patient's chart. 0:47:12 Bedside Report will be given. 0:49:03 HR=92 bpm, HESN=875/98 mmhg, PiR7=537.0 %, Resp=19 B/min, Pain=9, Ezequiel=10, Carey=2 0:54:46 Ventricular Fibrillation noted. 0:54:48 Patient defibrillated at ~JOULES~ joules. The ECG rhythm was noted as ~ARRHYTHMIAS~. 0:54:51 Ventricular Fibrillation noted. 0:54:55 Patient defibrillated at 300 joules. The ECG rhythm was noted as V-Fib. 0:54:57 Ventricular Fibrillation noted. 0:58:24 NIBP STAT measurement started. 1:00:10 150 mg AMIODARONE given in lab by Ivania Glass RN in Right Hand. Ordered by You Bustamante. 1:00:26 HR=82 bpm, CLWG=146/83 mmhg, AdV6=512 %, Resp=20 B/min, Pain=9, Ezequiel=10, Carey=2 1:03:21 150 mg AMIODARONE given in lab by Ivania Glass RN in Right Hand. Ordered by You Bustamante. 1:05:20 30 mg LIDOCAINE given in lab by Ivania Glass RN in Right Hand via Peripheral IV. Ordered by Salazar Bustamante. 1:06:15 Patient defibrillated at 300 joules. The ECG rhythm was noted as V-Fib. 1:08:22 Patient defibrillated at 300 joules. The ECG rhythm was noted as V-Fib. 1:09:28 Patient defibrillated at 360 joules. The ECG rhythm was noted as V-Fib. 1:11:34 Patient defibrillated at 360 joules. The ECG rhythm was noted as V-Fib. 0.3 mg EPINEPHRINE 10/999 given in lab by Ivania Glass RN in Left Hand via Peripheral IV. Ord ered by Robby, 1:15:52 [place]. 33 mL/hr Amiodarone Drip given in lab by Maria Eugenia Allison, RN in Right Hand via Peripheral IV. Pu mp/Drip Flow = 1:22:11 18.33 ml/hr using NaCl .9 with a concentration of 450 mL in 250 ml. Ordered by Salazar Bustamante. 1:23:14 Oral Intubation Performed Vitals capture started with the following parameters, Patient=Adult, Interval=5 min, Initial Pre intey=379 mmHg, 1:25:05 Deflation Rate=5 mmHg, Cuff placed on Right Arm 1:25:53 HR=87 bpm, NOJM=323/60 mmhg, SpO2=95 %, Resp=12 B/min, Pain=9, Ezequiel=10, Carey=2 Assessment: Final Case, HR=87 BPM, NLAW=880/60 mmhg, Edema=None, Color=Normal, Skin = Warm, Dry 1:29:32 Neurological: State=Alert, Ox3, CHA Respiration: Resp=13 B/min, SpO2=95 %, Type=ET(Oral) 1:30:40 HR=86 bpm, NIBP=99/50 mmhg, SpO2=98.0 %, Resp=8 B/min, Pain=9, Ezequiel=10, Carey=2 PCI QA completed: Pre-Magdi - 0, Post Magdi - 3, Type - ~TYPE~, Length - 18 mm, Morphology - ~MORP HOLOGY~, 1:30:53 Indications - ~INDICATIONS~, Pre-Stenosis - 100% and Post Stenosis - 0%. 1:30:54 PCI QA obtained from Network Liaison 1:31:36 Patient moved to [facility] End Study - Contrast Media Used In Study Contrast Total Opened (mL) Total Used (mL) Total Wasted (mL) Omnipaque 225 225 0 End Study - Radiation Exposure Fluoro Time (minutes) 29.2 End Study - Patient Disposition Complications Transferred To Interventional Outcome No Critical Care Bed successful
[2018-05-04] MEDS ORDERED: Thrombin Topical Soln 5,000 UNIT Vial TOPICAL ONE (02:18)
[2018-05-04] MEDS ORDERED: Propofol 1000 mg/100 ml Inj 1,000 MG/100 ML BOTTLE IV.CONT PRN (02:22)
[2018-05-04 02:35] LABS: ABG Base Excess -1.5 mmol/L (-2-2); ABG PCO2 48 mmHg (38-42); ABG PO2 145 mmHG (61-120)
[2018-05-04] MEDS ORDERED: Diphtheria/Tetanus/Pertussis Vaccine Inj 0.5 ML Syringe IM ONE (02:45)
--- NOTE | 2018-05-04 02:54 | P.HPCC ---
History of Present Illness Primary Care Physician: Hugo Waddell MD History of Present Illness: Patient is intubated and not able to provide past medical history. History obtained by review of EMR and discussion with Dr. Bustamante. 57-year-old -[place] female with past medical history of hypertension, obesity, previous type II diabetes mellitus that resolved following gastric bypass, who presents to [facility] emergency department with chest pain radiating to her left arm. EKG demonstrated inferior wall STEMI. She was taken emergently to cardiac laboratory inspector by Dr. Bustamante. She had episode of V fib and was shocked prior to cath. She was revascularized satisfactorily following thrombectomy, angioplasty and a bare metal stent to mid RCA . Preserved ejection fraction noted during cath. Upon completion of cath, she was reportedly alert and communicative, then had multiple episodes of V fib and was shocked 6-8 times. She received amiodarone 300 mg IV, lidocaine 100mg IV . Dr. Bustamante called to request critical care to admit as patient would require intubation for recurrent V fib. Upon arrival she would open eyes intermittently , was being bagged by laboratory inspector nurse, sats 100%. She had large amount of blood emanating from mouth and into BVM as she had bitten her tongue during the initial episode of V fib. Set up suction and suctioned oropharynx. I set up airway equipment however RSI drugs not available and patient still with significant gag reflex. public works laborer called anesthesiology who brought propofol and succinylcholine and intubated patient. Started on amiodarone drip, continued on Aggrastat. - Diagnosis (1) ST elevation (STEMI) myocardial infarction involving right coronary artery (2) Ventricular fibrillation (3) Stented coronary artery (4) Acute respiratory failure with hypoxia (5) Obesity, morbid, BMI 50 or higher (6) Hyperglycemia (7) Hypokalemia (8) HTN (hypertension) (9) Laceration of tongue Inpatient Certification: I certify that the inpatient services were ordered in accordance with Medicare regulations governing the order. This includes certification that hospital inpatient services are reasonable and necessary and in the case of services not specified as inpatient-only under 42 CFR 419.22(n), that they are appropriately provided as inpatient services in accordance to with the 2-midnight benchmark under 43 CFR 412.3(e) [facility] - History History Provided By: Medical Record - Medical / Surgical Hx Neg / Unobtainable Medical Problems Denied: Unable to Obtain Surgical History: Unable to Obtain - Medical History Medical History: Medical History (Last Reviewed 05/04/18 @ 04:57 by Salome Goss MD) History of stress test Hypertension - Surgical History Surgical History: Surgical History (Last Reviewed 05/04/18 @ 04:57 by Salome Goss MD) H/O gastric bypass H/O hernia repair Status post surgical manipulation of ankle joint - Tobacco History Second Hand Smoke Exposure: No Tobacco Use In Past 30 Days: No Smoking Status: Never smoker - Alcohol History How Often Do You Have a Drink Containing Alcohol: Never - Substance Use History Substance History: No History of Abuse - Travel History Recent Travel in the [place] Within the Last 8 Weeks: No Recent Travel Out of the Country Within the Last 8 Weeks: No - Immunization History Tetanus Immunization: Unable to Assess Hx Influenza Vaccine This Season: Unable to Assess Medications and Allergies Active Medications: Active Medications Aspirin (Aspirin Chew) 162 mg PO DAILY VEENA Atorvastatin Calcium (Lipitor) 80 mg PO HS VEENA Carvedilol (Coreg) 3.125 mg PO BID VEENA Diphtheria/Tetanus/Acell Pertussis (Infanrix Peds Inj) 0.5 ml IM .ONCE ONE Stop: 05/04/18 03:31 Nitroglycerin/Dextrose (Nitroglycerin Drip Premix) 50 mg in 250 mls @ 0 mls/hr IV.CONT TITRATE PRN; Protocol PRN Reason: Per Protocol Last Admin: 05/03/18 22:50 Dose: 5 mcg/min, 1.5 mls/hr Sodium Chloride (Ns Inj) 1,000 mls @ 30 mls/hr IV.SIG .Q24H [facility] Stop: 05/04/18 22:29 Last Admin: 05/03/18 22:49 Dose: 30 mls/hr Amiodarone HCl 450 mg/ (Dextrose) 250 mls @ 33.33 mls/hr IV.CONT .Q7H31M [facility]; Protocol Tirofiban/Sodium Chloride (Aggrastat Inj) 12,500 mcg in 250 mls @ 11.4 mls/hr IV.CONT .[id number] [facility]; Protocol Propofol (Diprivan 1000 Mg/100 Ml Inj) 1,000 mg in 100 mls @ 4.29 mls/hr IV.CONT TITRATE PRN; Protocol PRN Reason: Per Protocol Lisinopril (Prinivil) 2.5 mg PO DAILY VEENA Prasugrel (Effient) 10 mg PO DAILY VEENA Sodium Chloride (Ns Flush) 2 ml IV.FLUSH PRN PRN PRN Reason: FLUSH AFTER USING IV ACCESS Sodium Chloride (Ns Flush) 2 ml IV.FLUSH BID VEENA Sodium Chloride (Ns Flush) 2 ml IV.FLUSH PRN PRN PRN Reason: FLUSH AFTER USING IV ACCESS Allergies Allergy/AdvReac Type Severity Reaction Status Date / Time No Known Allergies Allergy Unverified 05/03/18 22:29 Home Medications Medication Instructions Recorded Confirmed Type amlodipine 10 mg PO DAILY 05/03/18 05/03/18 History doxazosin 8 mg PO DAILY 05/03/18 05/03/18 History losartan 100 mg PO DAILY 05/03/18 05/03/18 History potassium chloride 10 meq PO TID 05/03/18 05/03/18 History triamterene-hydrochlorothiazid 1 cap PO DAILY 05/03/18 05/03/18 History Results - Labs CBC & Chem 7: 05/04/18 03:17 05/04/18 03:17 Labs: BMP 05/03/18 22:23 Calcium 8.0 L Cardiac Enzymes 05/03/18 Range/Units 22:23 Total Creatine Kinase 120 (26-192) U/L CK-MB (CK-2) 1.6 (0.5-3.6) ng/mL Troponin I 0.09 H (0.02-0.05) ng/mL - Imaging Impressions Chest X-Ray 05/03/18 22:18 CONCLUSION: Minimal basilar atelectasis. No effusion or pneumothorax. Exam Vital signs: Vital Signs 05/03/18 22:17 05/03/18 22:18 05/03/18 22:23 Temperature 98.2 F 98.2 F Pulse Rate 79 70 Respiratory Rate 22 22 Blood Pressure 119/77 123/81 Pulse Oximetry 99 98 98 05/03/18 22:27 05/04/18 02:00 Temperature Pulse Rate Respiratory Rate 18 Blood Pressure Pulse Oximetry 98 99 Intake & Output 05/03/18 05/03/18 05/04/18 06:59 18:59 06:59 Weight 143 kg Other: Weight On Admission 143 kg Narrative: GENERAL: Obese -Albanian female now orotracheally intubated. SKIN: Warm and dry, adequately perfused. HEAD: Atraumatic. Normocephalic. EYES: Pupils equal and round, 3 mm and reactive to 2 mm bilaterally.. No scleral icterus. No injection or drainage. ENT: No nasal bleeding. Tongue lacerations are noted on lateral aspect of tongue bilaterally as well as a smaller laceration on the tip of the tongue. Tissue is macerated with oozing from edges and not amenable to suture repair. These are actively bleeding with pooling of venous blood in posterior oropharynx. NECK: Trachea midline. No JVD. CARDIOVASCULAR: Regular rate and rhythm, sinus on monitor now with rate in 60s following sedation,. No murmurs rubs or gallops. RESPIRATORY: Orotracheally intubated, clear secretions with suctioning. Rhonchorous breath sounds bilaterally, diminished bibasilar. GASTROINTESTINAL: Abdomen obese, soft, nontender. Vertical scar at and below umbilicus is well healed. Bowel sounds sluggish. MUSCULOSKELETAL: Extremities without clubbing, cyanosis, or edema. NEUROLOGICAL: Awake and alert, opens eyes spontaneously makes eye contact. Nods in response to questioning. Follows commands with all extremities.. Caprini VTE Risk Assessment Caprini VTE Risk Assessment: Moderate/High Risk (score >= 2) VTE Pharmacological Exception Reason: Active bleeding Caprini Risk Assessment Model: Point Value = 1 Point Value = 2 Point Value = 3 Point Value = 5 Age 41-60 Minor surgery BMI > 25 kg/m2 Swollen legs Varicose veins or History of unexplained or recurrent spontaneous Oral contraceptives or hormone replacement Sepsis (< 1 month) Serious lung disease, including pneumonia (< 1 month) Abnormal pulmonary function Acute myocardial infarction Congestive heart failure (< 1 month) History of inflammatory bowel disease Medical patient at bed rest Age 61-74 Arthroscopic surgery Major open surgery (> 45 min) Laparoscopic surgery (> 45 min) Malignancy Confined to bed (> 72 hours) Immobilizing plaster cast Central venous access Age >= 75 History of VTE Family history of VTE Factor V Leiden Prothrombin [id number] Lupus anticoagulant Anticardiolipin antibodies Elevated serum homocysteine Heparin-induced thrombocytopenia Other congenital or acquired thrombophilia Stroke (< 1 month) Elective arthroplasty Hip, pelvis, or leg fracture Acute spinal cord injury (< 1 month) Prophylaxis Regimen: Total Risk Factor Score Risk Level Prophylaxis Regimen 0-1 Low Early ambulation 2 Moderate Order ONE of the following: *Sequential Compression Device (SCD) *Heparin 5000 units SQ BID 3-4 Higher Order ONE of the following medications: *Heparin 5000 units SQ TID *Enoxaparin/Lovenox 40 mg SQ daily (WT < 150 kg, CrCl > 30 mL/min) *Enoxaparin/Lovenox 30 mg SQ daily (WT < 150 kg, CrCl > 10-29 mL/min) *Enoxaparin/Lovenox 30 mg SQ BID (WT < 150 kg, CrCl > 30 mL/min) AND/OR *Sequential Compression Device (SCD) 5 or more Highest Order ONE of the following medications: *Heparin 5000 units SQ TID (Preferred with Epidurals) *Enoxaparin/Lovenox 40 mg SQ daily (WT < 150 kg, CrCl > 30 mL/min) *Enoxaparin/Lovenox 30 mg SQ daily (WT < 150 kg, CrCl > 10-29 mL/min) *Enoxaparin/Lovenox 30 mg SQ BID (WT < 150 kg, CrCl > 30 mL/min) AND *Sequential Compression Device (SCD) Assessment and Plan - Problem List (1) ST elevation (STEMI) myocardial infarction involving right coronary artery Code(s): I21.11 - ST elevation (STEMI) myocardial infarction involving right coronary artery Status: Acute (2) Ventricular fibrillation Code(s): I49.01 - Ventricular fibrillation Status: Acute (3) Stented coronary artery Code(s): Z95.5 - Presence of coronary angioplasty implant and graft Status: Acute (4) Acute respiratory failure with hypoxia Code(s): J96.01 - Acute respiratory failure with hypoxia Status: Acute (5) Obesity, morbid, BMI 50 or higher Code(s): E66.01 - Morbid (severe) obesity due to excess calories Status: Chronic (6) Hyperglycemia Code(s): R73.9 - Hyperglycemia, unspecified Status: Acute (7) Hypokalemia Code(s): E87.6 - Hypokalemia Status: Acute (8) HTN (hypertension) Code(s): I10 - Essential (primary) hypertension Status: Acute (9) Laceration of tongue Code(s): S01.512A - Laceration without foreign body of oral cavity, initial encounter Status: Acute - Assessment and Plan Plan: NEURO: Propofol for sedation Fentanyl for analgosedation Target RASS -2. Neurologically alert and following commands following in hospital V-fib arrest. Does not meet criteria for induced therapeutic hypothermia. RESP: Acute respiratory failure Intubated with Glidescope for airway protection/V fib Vent bundle PRVC tidal volume 470, rate 20, PEEP 8, I time 1, FiO2 60% ET tube retracted 1 cm following chest x-ray. Appears aspirated in right lower lobe (maybe aspiration of blood from tongue laceration). CV: Inferior STEMI now s/p thrombectomy, angioplasty and bare metal RCA stent Recurrent ventricular fibrillation Hypertension Defibrillated multiple times for V. fib. Received amiodarone total 300 mg IV bolus, lidocaine 100 mg IV. Continue amiodarone drip. Preserved EF during cath. Continue Aggrastat drip per cardiology. Effient 60 mg load now via OG tube then 10 mg daily. Aspirin 162 mg daily Lipitor 80 mg p.o. daily Coreg 3.125 mg p.o. twice daily GI: Morbid obesity Status post gastric bypass Orogastric tube inserted. LIWS for now. FEN/RENAL: Hypokalemia Insert Hdz to monitor intake and output hourly following V. fib arrest. LR with 20 mEq of KCl per liter at 75 mL/h Electrolyte replacement per ICU electrolyte protocol ID: Monitor for signs and symptoms of infection. Appears she likely aspirated. Would hold off on antibiotics currently as this represents chemical pneumonitis. HEME: Initial hemoglobin 11.7 with normal platelet count and coags. Monitor CBC ENDO: Acute hyperglycemia Previously history of diabetes mellitus but reportedly this has been controlled following weight loss Monitor bedside glucose every 6 hours and administer low-dose insulin sliding scale as indicated. HEENT: Tongue lacerations bilaterally Irrigated and evaluated, not amenable to suture repair. Continuously bleeding and pooling blood in posterior oropharynx. I applied topical thrombin diluted to 100 units/mL ~20 mL and applied manual pressure until adequate hemostasis obtained. Tdap administered. PROPH: SCDs for DVT prophylaxis. Lovenox subcu for DVT prophylaxis when off Aggrastat. Famotidine for stress ulcer prophylaxis. ACCESS: Peripheral IV providing adequate access at this time. Met patient in laboratory inspector immediately upon request of Dr. Bustamante and accompanied her to [facility] [place]. She is critically ill with recurrent V fib requiring management not limited to mechanical ventilation and addressing active oral bleeding. Multiple family members updated in ICU. She is not , no kids, no advanced directives. Her siblings (5 sisters, 1 brother) are her next of kin. CCT 90 minutes exclusive of separately billable procedures. H&P: Quality - VTE Deep Vein Thrombosis/Pulmonary Embolism Present on Admission: No
[2018-05-04] MEDS ORDERED: Bisacodyl 10 MG Supp RECTAL PRN (02:56)
--- NOTE | 2018-05-04 02:57 | XR ---
EXAM DATE: 05/04/2018 2:36 AM EDT AGE/SEX: 57 years / Female INDICATIONS: Respiratory failure. CLINICAL DATA: This is the patient's subsequent encounter. Patient reports that signs and symptoms h ave been present for 2 days and indicates a pain score of Nonresponsive. MEDICAL/SURGICAL HISTORY: Non-responsive. Non-responsive. COMPARISON: [facility] [place]ST 1V SINGLE AP, 05/03/2018. . FINDINGS: ETT near the fay. NGT coursing beyond the GE junction. Mild patchy airspace disease in the right l ower lung zone. Cardiomediastinal contours are stable. Remainder of the exam is unchanged. CONCLUSION: 1. ET tube near the fay. 2. NGT beyond the GE junction. 3. Patchy airspace disease in the right lower lung zone, likely atelectasis. Electronically signed by: Catrachito Gunderson MD 05/04/2018 2:56 AM EDT
[2018-05-04] MEDS ORDERED: fentaNYL Citrate Inj 100 MCG/2 ML Ampul IV.PUSH PRN (03:08)
--- NOTE | 2018-05-04 03:22 | MR ---
cc: Salazar Bustamante MD DATE: 05/04/2018 INDICATIONS FOR PROCEDURE: ST elevation myocardial infarction, class IV angina, moderately frail patient. PROCEDURES PERFORMED: 1. Retrograde left heart catheterization with left ventriculography and selective coronary angiography. 2. Thrombectomy, angioplasty and stenting of the right coronary artery. 3. Moderate sedation. 4. Defibrillation of ventricular fibrillation. 5. ACLS protocol for cardiac arrest. MEDICATIONS: Versed IV, fentanyl IV, heparin IV, tirofiban IV bolus and drip, amiodarone IV, lidocaine IV, epinephrine IV. ACCESS SITE: Right femoral artery access was difficult due to the size of the patient. Ultrasound guidance was used for access. CONTRAST: Omnipaque 225 mL. COMPLICATIONS: Ventricular fibrillation arrest prior to the procedure and following the procedure. BLOOD LOSS: Less than 10 mL. HEMOSTASIS: Angio-Seal closure. RESULTS: HEMODYNAMICS: Heart rate 60 beats per minute, left ventricular end-diastolic pressure 70 mmHg, left ventricle 105/17, aorta 105/60/82. LEFT VENTRICULOGRAPHY: Ejection fraction 60%, wall motion: inferobasal severe hypokinesis, no mitral regurgitation. CORONARY ANGIOGRAPHY: Left main coronary artery has 50% ostial stenosis. Left anterior descending artery has 50% stenosis in the proximal portion distally to a first diagonal branch and 50% stenosis in the mid portion. First diagonal artery had 60% stenosis. Left circumflex artery small and patent. OM1 patent. Right coronary artery is totally occluded in the mid portion with a large amount of thrombus. The stenosis in the mid right coronary artery 18 mm long, pre-CHARLES flow 0, post-CHARLES flow 3, post-stenosis 0. EQUIPMENT USED: 5-Tajik pigtail catheter, JL4 and AR1 modified coronary catheters. AR1 guide, Run through wire, [place] thrombectomy catheter, 2.0 balloon, 4.0 x 22 mm Integrity stent at 19 atmospheres postdilated with 5.0 x 12 mm noncompliant balloon at 16 atmospheres. Post-intervention angiography revealed excellent patency of the stented segment and no evidence of dissection. There was a thrombus in the distal part of the left ventricular branch. The patient developed multiple episodes of ventricular fibrillation initially prior to the procedure and then subsequent to the procedure. ST segments were initially elevated, were almost completely resolved at the end of the procedure, and remained down until her transfer to the ICU. The patient was given IV amiodarone, IV lidocaine, IV epinephrine, and IV amiodarone drip was started. She was intubated by Anesthesia. DIAGNOSES: 1. ST elevation myocardial infarction. 2. Coronary artery disease with total occlusion of the right coronary artery with thrombus. 3. Successful thrombectomy, angioplasty and stenting of the right coronary artery. 4. Ventricular fibrillation arrest. 5. Successful defibrillation, ACLS protocol for ventricular fibrillation arrest. 6. Overall preserved LV systolic function. DISPOSITION: Ms. Renee will be monitored in the ICU. We will continue amiodarone drip. We will continue platelet inhibition with tirofiban. We will continue therapy with Effient and aspirin. We will start beta kasie and statin. MD NIKO Roa/SUSAN , 01:26 AM , 03:21 AM JODY
[2018-05-04 03:26] LABS: Hemoglobin 11.7 gm/dL (11.6-15.3); Mean Corpuscular HGB Conc 32.4 % (32.0-36.0); Mean Corpuscular Hemoglobin 25.8 pg (27.0-34.0); Mean Corpuscular Volume 79.6 fL (80.0-100.0); Mean Platelet Volume 7.2 fL (7.0-11.0); Platelet Count 219 th/mm3 (150-450); Red Blood Count 4.52 mil/mm3 (4.00-5.30); Red Cell Distribution Width 15.6 % (11.6-17.2); White Blood Count 8.2 th/mm3 (4.0-11.0)
[2018-05-04] MEDS ORDERED: Diphtheria/Tetanus/Acellular Pertusis Inj 0.5 ML Vial IM ONE (03:30)
[2018-05-04 03:47] LABS: Alanine Aminotransferase 25 U/L (10-53); Albumin 3.4 g/dL (3.4-5.0); Alkaline Phosphatase 93 U/L (45-117); Anion Gap 9 meq/L (5-15); Aspartate Aminotransferase 65 U/L (15-37); Blood Urea Nitrogen 24 mg/dL (7-18); Calcium 7.6 mg/dL (8.5-10.1); Chloride 110 meq/L (98-107); Glomerular Filtration Rate 79 mL/min (>89); Glucose,Random 238 mg/dL (74-106); Sodium 144 meq/L (136-145); Total Protein 7.1 g/dL (6.4-8.2)
[2018-05-04] MEDS ORDERED: fentaNYL 10 mcg/mL Premix Drip 2,500 MCG/250 ML BAG IV.SIG PRN (03:47)
[2018-05-04] MEDS ORDERED: fentaNYL Citrate Inj 100 MCG/2 ML Ampul IV.PUSH ONE (03:47)
[2018-05-04 03:50] LABS: Potassium 2.8 meq/L (3.5-5.1)
[2018-05-04] MEDS ORDERED: Chlorhexidine Gluconate 2% 1 Pack (2 Cloths) TOPICAL PRN (04:00)
[2018-05-04] MEDS ORDERED: Potassium Phosphate 500 MG Soluble Tablet PO PRN ×2 (04:53)
[2018-05-04] MEDS ORDERED: Sodium Phosphate Inj 30 MMOL in Sodium Chlor 0.9% Inj 250 ML IV.SIG PRN (04:53)
[2018-05-04] MEDS ORDERED: Potassium Phosphate Inj 30 MMOL in Sodium Chlor 0.9% Inj 250 ML IV.SIG PRN (04:53)
[2018-05-04] MEDS ORDERED: Potassium Chlor 20 mEq Premix 20 MEQ/100 ML PIGGYBACK IV.SIG PRN (04:53)
[2018-05-04] MEDS ORDERED: Magnesium Sulfate Inj 4 GM in Sodium Chlor 0.9% Inj 92 ML IV.SIG PRN (04:53)
[2018-05-04] MEDS ORDERED: Magnesium Oxide 400 MG Tablet PO PRN (04:53)
[2018-05-04] MEDS ORDERED: Magnesium Sulfate Inj 2 GM in Sodium Chlor 0.9% Inj 96 ML IV.SIG PRN (04:53)
[2018-05-04] MEDS ORDERED: Potassium Chloride 25 MEQ Effervescent Tablet PO PRN (04:53)
[2018-05-04] MEDS ORDERED: Potassium Chlor 40 mEq Premix 40 MEQ/100 ML PIGGYBACK IV.SIG PRN ×2 (04:53)
[2018-05-04] MEDS ORDERED: Dextrose 50% in Water 50 ML Vial IV.PUSH PRN (04:54)
[2018-05-04] MEDS ORDERED: Lidocaine 2% 100 MG/5 ML Syringe IV.PUSH ONE (05:00)
[2018-05-04] MEDS: Potassium Chlor 20 mEq Premix 20 MEQ/100 ML PIGGYBACK IV.SIG PRN ×4 (06:02→16:47)
[2018-05-04] MEDS ORDERED: Lisinopril 5 MG Tablet PO SCH (09:00)
[2018-05-04 09:23] LABS: Bilirubin,Urine Negative (Negative); Clarity,Urine Clear (Clear); Color,Urine Yellow (Yellw/Straw); Glucose,Urine (UA) Negative (Negative); Leukocyte Esterase,Urine Negative (Negative); Mucus,Urine Few /lpf (Occasional); Nitrite,Urine Negative (Negative); Squamous Epithelial Cell,Urine 2 /hpf (0-5)
[2018-05-04] MEDS: Famotidine 20 MG Tablet PO SCH ×2 (09:24→20:16)
[2018-05-04] MEDS: Senna/Docusate Sodium 8.6/50 MG Tablet PO SCH ×2 (09:34→20:16)
--- NOTE | 2018-05-04 09:35 | ECG ---
Date Performed: 05/03/2018 Time Performed: 22:21:59 PTAGE: 57 years EKG: Sinus rhythm POSSIBLE LATERAL MYOCARDIAL INFARCTION MARKED ST ELEVATION, CONSIDER INFERIOR INJURY ACUTE FL NO PREVIOUS TRACING DOCTOR: Reji Ramos Interpretating Date/Time 05/04/2018 09:32:01
[2018-05-04] MEDS: Chlorhexidine 0.12% Oral Kit 15 ML UDC OROPHARYNG SCH ×2 (09:38→20:25)
[2018-05-04] MEDS: Carvedilol 6.25 MG Tablet PO SCH ×2 (10:42→20:16)
[2018-05-04] MEDS ORDERED: Succinylcholine Inj 200 MG/10 ML Vial IV.PUSH ONE (12:00)
[2018-05-04] MEDS ORDERED: Lidocaine PF 1% Inj 5 ML Syringe INFILTRATN ONE (12:00)
[2018-05-04] MEDS ORDERED: Iohexol 350 MG/ML 100 ML Vial (for Cath Lab) IV.SIG ONE (13:37)
[2018-05-04] MEDS ORDERED: Iohexol 350 MG/ML 50 ML Vial (for Cath Lab) IV.SIG ONE (13:37)
--- NOTE | 2018-05-04 15:12 | P.PNCA ---
<Mary Roberts N - Last Filed: 05/04/18 14:48> Subjective Interval history: Pt is intubated, awake and following commands at this time. VSS. Pt shakes head no when asked about CP, pressure or palpitations. Physical Exam Vital signs: Vital Signs 05/03/18 22:17 05/03/18 22:18 05/03/18 22:23 Temperature 98.2 F 98.2 F Pulse Rate 79 70 Respiratory Rate 22 22 Blood Pressure 119/77 123/81 Pulse Oximetry 99 98 98 05/03/18 22:27 05/04/18 01:28 05/04/18 02:00 Temperature 97.4 F L Pulse Rate 74 Respiratory Rate 20 18 Blood Pressure 99/58 L Pulse Oximetry 98 96 99 05/04/18 02:13 05/04/18 04:00 05/04/18 04:40 Temperature Pulse Rate 60 60 Respiratory Rate 20 Blood Pressure Pulse Oximetry 100 05/04/18 06:13 05/04/18 06:16 05/04/18 08:00 Temperature Pulse Rate 60 60 Respiratory Rate Blood Pressure Pulse Oximetry 100 05/04/18 08:59 05/04/18 13:11 Temperature Pulse Rate Respiratory Rate 23 Blood Pressure Pulse Oximetry 100 100 Intake & Output 05/03/18 05/04/18 05/04/18 18:59 06:59 18:59 Intake Total 100 / 100 Output Total 700 / 700 1400 / 1400 Balance -700 / -700 -1300 / -1300 Weight 143 kg Intake: IV 100 / 100 KCl 20 mEq Premix Inj 20 meq In 100 / 100 100 ml @ 50 mls/hr IV.SIG Q2H PRN Rx#:[id number] Oral 0 / 0 Oral Supplement 0 / 0 Output: Urine 700 / 700 1400 / 1400 Other: Weight On Admission 143 kg - Constitutional no acute distress - Routine Respiratory Exam Present: patient mechanically ventilated, CTA bilaterally - Routine Cardiovascular Exam Present: RRR. Absent: murmur, gallop, rubs - Routine Abdominal Exam Present: soft - Routine Extremities Exam Present: pulses intact, normal capillary refill - Routine Skin Exam Present: intact - Routine Neurological Exam Present: alert - Routine Psychiatric Exam Present: normal affect Assessment and Plan - Assessment (1) ST elevation (STEMI) myocardial infarction involving right coronary artery Code(s): I21.11 - ST elevation (STEMI) myocardial infarction involving right coronary artery Status: Acute (2) Stented coronary artery Code(s): Z95.5 - Presence of coronary angioplasty implant and graft Status: Acute (3) Obesity, morbid, BMI 50 or higher Code(s): E66.01 - Morbid (severe) obesity due to excess calories Status: Chronic (4) Hyperglycemia Code(s): R73.9 - Hyperglycemia, unspecified Status: Acute (5) Hypokalemia Code(s): E87.6 - Hypokalemia Status: Acute (6) Acute respiratory failure with hypoxia Code(s): J96.01 - Acute respiratory failure with hypoxia Status: Acute (7) HTN (hypertension) Code(s): I10 - Essential (primary) hypertension Status: Acute (8) Ventricular fibrillation Code(s): I49.01 - Ventricular fibrillation Status: Acute - Plan Pt status post emergent cardiac cath for acute AK. Pt had two stents placed in the RCA. Groin site is stable with no signs of hematoma or bleeding. NSR on monitor. Pt currently intubated, awake and following commands. Plan to extubate pt today. Continue ASA, Effient, Coreg, Amio. gtt and Tirofiban gtt. The patient was seen and evaluated by Dr. Bustamante who participated in are, management and decision making. <Salazar Bustamante - Last Filed: 05/04/18 15:58> Physical Exam Vital signs: Vital Signs 05/03/18 22:17 05/03/18 22:18 05/03/18 22:23 Temperature 98.2 F 98.2 F Pulse Rate 79 70 Respiratory Rate 22 22 Blood Pressure 119/77 123/81 Pulse Oximetry 99 98 98 05/03/18 22:27 05/04/18 01:28 05/04/18 02:00 Temperature 97.4 F L Pulse Rate 74 Respiratory Rate 20 18 Blood Pressure 99/58 L Pulse Oximetry 98 96 99 05/04/18 02:13 05/04/18 04:00 05/04/18 04:40 Temperature Pulse Rate 60 60 Respiratory Rate 20 Blood Pressure Pulse Oximetry 100 05/04/18 06:13 05/04/18 06:16 05/04/18 08:00 Temperature Pulse Rate 60 60 Respiratory Rate Blood Pressure Pulse Oximetry 100 05/04/18 08:59 05/04/18 13:11 Temperature Pulse Rate Respiratory Rate 23 Blood Pressure Pulse Oximetry 100 100 Intake & Output 05/03/18 05/04/18 05/04/18 18:59 06:59 18:59 Intake Total 350 / 350 Output Total 700 / 700 1400 / 1400 Balance -700 / -700 -1050 / -1050 Weight 315 lb 4.176 oz Intake: IV 350 / 350 Cordarone Inj 450 MG In D5W Inj 250 / 250 241 ML @ 1 MG/MIN 33.33 mls/hr IV.CONT .Q7H31M VEENA Rx#: [id number] KCl 20 mEq Premix Inj 20 meq In 100 / 100 100 ml @ 50 mls/hr IV.SIG Q2H PRN Rx#:[id number] Oral 0 / 0 Oral Supplement 0 / 0 Output: Urine 700 / 700 1400 / 1400 Other: Weight On Admission 315 lb 4.176 oz Assessment and Plan - Assessment (1) ST elevation (STEMI) myocardial infarction involving right coronary artery Code(s): I21.11 - ST elevation (STEMI) myocardial infarction involving right coronary artery Status: Acute (2) Stented coronary artery Code(s): Z95.5 - Presence of coronary angioplasty implant and graft Status: Acute (3) Obesity, morbid, BMI 50 or higher Code(s): E66.01 - Morbid (severe) obesity due to excess calories Status: Chronic (4) Hyperglycemia Code(s): R73.9 - Hyperglycemia, unspecified Status: Acute (5) Hypokalemia Code(s): E87.6 - Hypokalemia Status: Acute (6) Acute respiratory failure with hypoxia Code(s): J96.01 - Acute respiratory failure with hypoxia Status: Acute (7) HTN (hypertension) Code(s): I10 - Essential (primary) hypertension Status: Acute (8) Ventricular fibrillation Code(s): I49.01 - Ventricular fibrillation Status: Acute - Attending Attestation Patient seen and examined. I reviewed and agree with the findings and the plan presented. Continue post AK care. Increase activity, PT.
[2018-05-04] MEDS: Chlorhexidine Gluconate 2% 1 Pack (2 Cloths) TOPICAL SCH (15:36)
[2018-05-04] MEDS: Insulin NovoLOG Aspart Correctional Sugar Inj SQ SCH ×2 (15:38→15:41)
[2018-05-04] MEDS: Tirofiban Inj 12,500 MCG/250 ML PLAST..BAG IV.CONT SCH (15:38)
[2018-05-04] MEDS: Oral Hygiene Kit OROPHARYNG SCH ×2 (15:39→15:40)
[2018-05-05] MEDS: Insulin NovoLOG Aspart Correctional Sugar Inj SQ SCH ×4 (00:15→18:16)
[2018-05-05] MEDS: Oral Hygiene Kit OROPHARYNG SCH ×3 (02:34→13:25)
[2018-05-05] MEDS: Tirofiban Inj 12,500 MCG/250 ML PLAST..BAG IV.CONT SCH (02:46)
[2018-05-05] MEDS: Chlorhexidine Gluconate 2% 1 Pack (2 Cloths) TOPICAL SCH (03:36)
[2018-05-05 05:40] LABS: Anion Gap 9 meq/L (5-15); Blood Urea Nitrogen 8 mg/dL (7-18); Calcium 7.9 mg/dL (8.5-10.1); Carbon Dioxide 29.1 meq/L (21.0-32.0); Chloride 103 meq/L (98-107); Chol/HDL Ratio 2.25 Ratio; Cholesterol 156 mg/dL (120-200); Creatine Kinase 2105 U/L (26-192); Glomerular Filtration Rate Greater Than 89 mL/min (>89); Glucose,Random 103 mg/dL (74-106); HDL Cholesterol 69.1 mg/dL (40.0-60.0); LDL Cholesterol,Calculated 70 mg/dL (0-99); Magnesium 1.8 mg/dL (1.5-2.5); Phosphorus 2.8 mg/dL (2.5-4.9); Potassium 3.4 meq/L (3.5-5.1); Sodium 141 meq/L (136-145); Triglycerides 86 mg/dL (42-150)
[2018-05-05 06:09] LABS: Creatine Kinase MB 155.3 ng/mL (0.5-3.6)
[2018-05-05 06:13] LABS: CKMB Percent 7.4 % (0.0-4.0)
--- NOTE | 2018-05-05 06:20 | XR ---
EXAM DATE: 05/05/2018 6:06 AM EDT AGE/SEX: 57 years / Female INDICATIONS: Short of breath. CLINICAL DATA: This is the patient's subsequent encounter. Patient reports that signs and symptoms h ave been present for 1 week and indicates a pain score of 0/10. MEDICAL/SURGICAL HISTORY: Non-responsive. Non-responsive. COMPARISON: [facility], CHEST 1V SINGLE AP, 05/04/2018. . FINDINGS: Patient has been extubated with NG tube removed. There is improved aeration in the right lower lung z one. Patchy perihilar opacities bilaterally. Cardiac silhouette is enlarged. Remainder of exam is unc hanged. CONCLUSION: 1. Patient is extubated with NG tube removed. 2. Improved aeration in the right lower lung zone. 3. Cardiomegaly with central pulmonary vascular congestion. Electronically signed by: Catrachito Gunderson MD 05/05/2018 6:19 AM EDT
[2018-05-05] MEDS: Famotidine 20 MG Tablet PO SCH ×2 (08:16→21:01)
[2018-05-05] MEDS: Senna/Docusate Sodium 8.6/50 MG Tablet PO SCH ×2 (08:17→21:01)
[2018-05-05] MEDS: Carvedilol 6.25 MG Tablet PO SCH ×2 (08:17→21:01)
[2018-05-05 08:33] LABS: Baso % (Auto) 0.2 % (0.0-2.0); Eos % (Auto) 0.4 % (0.0-4.0); Hematocrit 36.2 % (35.0-46.0); Hemoglobin 11.6 gm/dL (11.6-15.3); Lymph # (Auto) 0.7 th/mm3 (1.0-4.8); Lymph % (Auto) 6.9 % (9.0-44.0); Mean Corpuscular HGB Conc 32.1 % (32.0-36.0); Mean Corpuscular Hemoglobin 25.2 pg (27.0-34.0); Mean Corpuscular Volume 78.5 fL (80.0-100.0); Mean Platelet Volume 7.5 fL (7.0-11.0); Mono # (Auto) 0.6 th/mm3 (0.0-0.9); Mono % (Auto) 6.4 % (0.0-8.0); Neut # (Auto) 8.7 th/mm3 (1.8-7.7); Neut % (Auto) 86.1 % (16.0-70.0); Platelet Count 222 th/mm3 (150-450); Red Blood Count 4.61 mil/mm3 (4.00-5.30); Red Cell Distribution Width 15.9 % (11.6-17.2); White Blood Count 10.1 th/mm3 (4.0-11.0)
[2018-05-05] MEDS: Acetaminophen 325 MG Tablet PO PRN ×2 (11:10→21:06)
[2018-05-05] MEDS: Chlorhexidine 0.12% Oral Kit 15 ML UDC OROPHARYNG SCH (11:38)
--- NOTE | 2018-05-05 13:11 | P.PNCC ---
Subjective Subjective Remarks/Hospital Course: 05/04: 57-year-old -[place] female with past medical history of hypertension, obesity, previous type II diabetes mellitus that resolved following gastric bypass, who presents to [facility] emergency department with chest pain radiating to her left arm. EKG demonstrated inferior wall STEMI. She was taken emergently to cardiac bobcat driver/labor by Dr. Bustamante. She had episode of V fib and was shocked prior to cath. She was revascularized satisfactorily following thrombectomy, angioplasty and a bare metal stent to mid RCA . Preserved ejection fraction noted during cath. Upon completion of cath, she was reportedly alert and communicative, then had multiple episodes of V fib and was shocked 6-8 times. She received amiodarone 300 mg IV, lidocaine 100mg IV . Dr. Bustamante called to request critical care to admit as patient would require intubation for recurrent V fib. Upon arrival she would open eyes intermittently, was being bagged by bobcat driver/labor nurse, sats 100 %. She had large amount of blood emanating from mouth and into BVM as she had bitten her tongue during the initial episode of V fib. Set up suction and suctioned oropharynx. I set up airway equipment however RSI drugs not available and patient still with significant gag reflex. senior cytogenetics laboratory director called anesthesiology who brought propofol and succinylcholine and intubated patient. Started on amiodarone drip, continued on Aggrastat. 05/05: Extubated yesterday. On Coumadin today. Appears comfortable. Tolerating p.o. diet. Objective Vital Signs / I&O: Vital Signs 05/04/18 13:11 05/04/18 16:00 05/04/18 20:00 Temperature 97.3 F L 97.9 F Pulse Rate 63 69 Respiratory Rate 23 22 Blood Pressure 132/82 163/79 H Pulse Oximetry 100 96 98 05/05/18 00:00 05/05/18 04:00 05/05/18 07:53 Temperature 98.8 F 98.6 F 97.5 F L Pulse Rate 66 69 Respiratory Rate 12 24 Blood Pressure 151/87 H 116/65 Pulse Oximetry 98 99 05/05/18 07:58 05/05/18 11:50 Temperature 97.5 F L Pulse Rate 69 71 Respiratory Rate 24 24 Blood Pressure 147/70 H Pulse Oximetry Intake & Output 0705/05/18 05/05/18 18:59 06:59 18:59 Intake Total 550 / 550 1850 / 1850 Output Total 3900 / 3900 1250 / 1250 Balance -3350 / -3350 600 / 600 Weight 138.5 kg Intake: IV 550 / 550 1610 / 1610 Cordarone Inj 450 MG In D5W Inj 250 / 250 250 / 250 241 ML @ 1 MG/MIN 33.33 mls/hr IV.CONT .Q7H31M VEENA Rx#: [id number] KCl Inj 20 MEQ In LR 1000 mL 1010 / 1010 Inj 1,000 ML @ 75 mls/hr IV. CONT .[id number] VEENA Rx#:[id number] Aggrastat Inj 12,500 mcg In 250 250 / 250 ml @ 11.4 mls/hr IV.CONT . [id number] VEENA Rx#:[id number] KCl 20 mEq Premix Inj 20 meq In 300 / 300 100 / 100 100 ml @ 50 mls/hr IV.SIG Q2H PRN Rx#:[id number] Oral 0 / 0 240 / 240 Oral Supplement 0 / 0 Output: Urine 3900 / 3900 1250 / 1250 Other: # Voids 1 # Bowel Movements 0 Result Diagrams: 05/05/18 06:58 05/05/18 04:22 Imaging: ITS Impressions Chest X-Ray 05/03/18 22:18 CONCLUSION: Minimal basilar atelectasis. No effusion or pneumothorax. Chest X-Ray 05/04/18 01:53 CONCLUSION: 1. ET tube near the fay. 2. NGT beyond the GE junction. 3. Patchy airspace disease in the right lower lung zone, likely atelectasis. Chest X-Ray 05/05/18 03:01 CONCLUSION: 1. Patient is extubated with NG tube removed. 2. Improved aeration in the right lower lung zone. 3. Cardiomegaly with central pulmonary vascular congestion. Objective Remarks: HEENT/Neuro: No pallor or icterus, tongue moist, MAYTE, Awake alert oriented 3 , nonfocal grossly, moving all 4 extremities Neck: No JVD Chest/pulmonary: CTA bilaterally Cardiovascular: S1-S2 regular no gallop or murmur GI/abdomen: Soft, nontender, bowel sounds present Extremities: Warm bilaterally, no edema Assessment and Plan - Problem List (1) ST elevation (STEMI) myocardial infarction involving right coronary artery Code(s): I21.11 - ST elevation (STEMI) myocardial infarction involving right coronary artery Status: Acute (2) Ventricular fibrillation Code(s): I49.01 - Ventricular fibrillation Status: Acute (3) Stented coronary artery Code(s): Z95.5 - Presence of coronary angioplasty implant and graft Status: Acute (4) Acute respiratory failure with hypoxia Code(s): J96.01 - Acute respiratory failure with hypoxia Status: Acute (5) Obesity, morbid, BMI 50 or higher Code(s): E66.01 - Morbid (severe) obesity due to excess calories Status: Chronic (6) Hyperglycemia Code(s): R73.9 - Hyperglycemia, unspecified Status: Acute (7) Hypokalemia Code(s): E87.6 - Hypokalemia Status: Acute (8) HTN (hypertension) Code(s): I10 - Essential (primary) hypertension Status: Acute (9) Laceration of tongue Code(s): S01.512A - Laceration without foreign body of oral cavity, initial encounter Status: Acute - Assessment and Plan Plan: NEURO: Propofol for sedation Fentanyl for analgosedation Target RASS -2. Neurologically alert and following commands following in hospital V-fib arrest. Does not meet criteria for induced therapeutic hypothermia. RESP: Acute respiratory failure Intubated with Glidescope for airway protection/V fib Vent bundle PRVC tidal volume 470, rate 20, PEEP 8, I time 1, FiO2 60% ET tube retracted 1 cm following chest x-ray. Appears aspirated in right lower lobe (maybe aspiration of blood from tongue laceration). CV: Inferior STEMI now s/p thrombectomy, angioplasty and bare metal RCA stent Recurrent ventricular fibrillation Hypertension Defibrillated multiple times for V. fib. Received amiodarone total 300 mg IV bolus, lidocaine 100 mg IV. amiodarone drip being switched to p.o. per cardiology. Preserved EF during cath. Completed Aggrastat drip per cardiology. Effient 60 mg load now via OG tube then 10 mg daily. Aspirin 162 mg daily Lipitor 80 mg p.o. daily Coreg 3.125 mg p.o. twice daily GI: Morbid obesity Status post gastric bypass Advance p.o. diet as tolerated FEN/RENAL: Hypokalemia Insert Hdz to monitor intake and output hourly following V. fib arrest. LR with 20 mEq of KCl per liter at 75 mL/h Electrolyte replacement per ICU electrolyte protocol ID: Monitor for signs and symptoms of infection. Appears she likely aspirated. Would hold off on antibiotics currently as this represents chemical pneumonitis. HEME: Initial hemoglobin 11.7 with normal platelet count and coags. Monitor CBC ENDO: Acute hyperglycemia Previously history of diabetes mellitus but reportedly this has been controlled following weight loss Monitor bedside glucose every 6 hours and administer low-dose insulin sliding scale as indicated. HEENT: Tongue lacerations bilaterally s/p topical thrombin diluted to 100 units/mL ~20 mL and applied manual pressure until adequate hemostasis obtained. Tdap administered. PROPH: SCDs for DVT prophylaxis. Lovenox subcu for DVT prophylaxis when off Aggrastat. Famotidine for stress ulcer prophylaxis. ACCESS: Peripheral IV providing adequate access at this time. She is not , no kids, no advanced directives. Her siblings (5 sisters, 1 brother) are her next of kin. Patient will be transferred out of ICU to [facility] later today. Will consult and transfer to hospitalist service for further medical management. Further recommendations per cardiology.
--- NOTE | 2018-05-05 15:42 | P.PNCA ---
<ArmandoMary N - Last Filed: 05/05/18 15:29> Subjective Interval history: Pt extubated 05-04-2018, A&O X 3. Pt denies any CP, pressure, palpitations, dizziness or SOB at this time. Physical Exam Vital signs: Vital Signs 05/04/18 16:00 05/04/18 20:00 05/05/18 00:00 Temperature 97.3 F L 97.9 F 98.8 F Pulse Rate 63 69 66 Respiratory Rate 23 22 12 Blood Pressure 132/82 163/79 H 151/87 H Pulse Oximetry 96 98 98 05/05/18 04:00 05/05/18 07:53 05/05/18 07:58 Temperature 98.6 F 97.5 F L Pulse Rate 69 69 Respiratory Rate 24 24 Blood Pressure 116/65 Pulse Oximetry 99 05/05/18 11:50 05/05/18 14:00 Temperature 97.5 F L Pulse Rate 71 69 Respiratory Rate 24 Blood Pressure 147/70 H Pulse Oximetry Intake & Output 05/04/18 05/05/18 05/05/18 18:59 06:59 18:59 Intake Total 805 / 805 1850 / 1850 1150 / 1150 Output Total 3900 / 3900 1250 / 1250 Balance -3095 / -3095 600 / 600 1150 / 1150 Weight 138.5 kg Intake: IV 805 / 805 1610 / 1610 1150 / 1150 Cordarone Inj 450 MG In D5W Inj 250 / 250 250 / 250 241 ML @ 1 MG/MIN 33.33 mls/hr IV.CONT .Q7H31M VEENA Rx#: [id number] Nitroglycerin Drip Premix 50 mg 250 / 250 In 250 ml @ Per Protocol IV. CONT TITRATE PRN Rx#:[id number] KCl Inj 20 MEQ In LR 1000 mL 1010 / 1010 400 / 400 Inj 1,000 ML @ 75 mls/hr IV. CONT .[id number] VEENA Rx#:[id number] Diprivan 1000 mg/100 ml Inj 1, 5 / 5 000 mg In 100 ml @ 5 MCG/KG/MIN 4.29 mls/hr IV.CONT TITRATE PRN Rx#:[id number] Aggrastat Inj 12,500 mcg In 250 250 / 250 250 / 250 ml @ 11.4 mls/hr IV.CONT . [id number] [facility] Rx#:[id number] KCl 20 mEq Premix Inj 20 meq In 300 / 300 100 / 100 100 / 100 100 ml @ 50 mls/hr IV.SIG Q2H PRN Rx#:[id number] Oral 0 / 0 240 / 240 Oral Supplement 0 / 0 Output: Urine 3900 / 3900 1250 / 1250 Other: # Voids 1 # Bowel Movements 0 - Constitutional no acute distress - Routine HEENT Exam Head: Present: normocephalic Eye: Present: PERRL ENT: Present: mucous membranes moist - Routine Respiratory Exam Present: CTA bilaterally - Routine Cardiovascular Exam Present: RRR. Absent: murmur, gallop, rubs - Routine Abdominal Exam Present: soft - Routine Extremities Exam Present: pulses intact, normal capillary refill - Routine Skin Exam Present: intact - Routine Neurological Exam Present: oriented X3 - Detailed Neurological Exam: Coma Scale Eye Opening: Spontaneous Verbal Response: Oriented Motor Response: Obey commands Mona Coma Scale Total: 15 - Routine Psychiatric Exam Present: normal affect Assessment and Plan - Assessment (1) ST elevation (STEMI) myocardial infarction involving right coronary artery Code(s): I21.11 - ST elevation (STEMI) myocardial infarction involving right coronary artery Status: Acute (2) Stented coronary artery Code(s): Z95.5 - Presence of coronary angioplasty implant and graft Status: Acute (3) Obesity, morbid, BMI 50 or higher Code(s): E66.01 - Morbid (severe) obesity due to excess calories Status: Chronic (4) Hyperglycemia Code(s): R73.9 - Hyperglycemia, unspecified Status: Acute (5) Hypokalemia Code(s): E87.6 - Hypokalemia Status: Acute (6) Acute respiratory failure with hypoxia Code(s): J96.01 - Acute respiratory failure with hypoxia Status: Acute (7) HTN (hypertension) Code(s): I10 - Essential (primary) hypertension Status: Acute (8) Ventricular fibrillation Code(s): I49.01 - Ventricular fibrillation Status: Acute - Plan No arrhythmias or CHF symptoms noted. Pt had two stents placed in the RCA. Groin site is stable with no signs of hematoma or bleeding. NSR on monitor. Pt was extubated on 05-04-2018 and is currently on 2L NC. Once Tirofiban gtt is complete, D/C. Continue ASA, Effient, Coreg, atorvastatin. Transition patient off Amiodarone gtt and place on Amiodarone 400mg PO BID. May transfer to floor if stable. The patient was seen and evaluated by Dr. Bustamante who participated in are, management and decision making. <Salazar Bustamante - Last Filed: 05/05/18 20:55> Physical Exam Vital signs: Vital Signs 05/05/18 00:00 05/05/18 04:00 05/05/18 07:53 Temperature 98.8 F 98.6 F 97.5 F L Pulse Rate 66 69 Respiratory Rate 12 24 Blood Pressure 151/87 H 116/65 Pulse Oximetry 98 99 05/05/18 07:58 05/05/18 11:50 05/05/18 14:00 Temperature 97.5 F L Pulse Rate 69 71 69 Respiratory Rate 24 24 Blood Pressure 147/70 H Pulse Oximetry 05/05/18 15:52 05/05/18 18:00 05/05/18 20:38 Temperature 98.9 F 98.8 F Pulse Rate 74 73 78 Respiratory Rate 23 20 Blood Pressure 113/73 110/77 Pulse Oximetry 97 96 Intake & Output 05/05/18 05/05/18 05/06/18 06:59 18:59 06:59 Intake Total 1850 / 1850 1390 / 1390 250 / 250 Output Total 1250 / 1250 1250 / 1250 Balance 600 / 600 140 / 140 250 / 250 Weight 305 lb 5.443 oz Intake: IV 1610 / 1610 1150 / 1150 250 / 250 Cordarone Inj 450 MG In D5W Inj 250 / 250 250 / 250 241 ML @ 1 MG/MIN 33.33 mls/hr IV.CONT .Q7H31M VEENA Rx#: [id number] KCl Inj 20 MEQ In LR 1000 mL 1010 / 1010 400 / 400 Inj 1,000 ML @ 75 mls/hr IV. CONT .[id number] VEENA Rx#:[id number] Aggrastat Inj 12,500 mcg In 250 250 / 250 250 / 250 ml @ 11.4 mls/hr IV.CONT . [id number] VEENA Rx#:[id number] KCl 20 mEq Premix Inj 20 meq In 100 / 100 100 / 100 100 ml @ 50 mls/hr IV.SIG Q2H PRN Rx#:[id number] Oral 240 / 240 240 / 240 Oral Supplement 0 / 0 Output: Urine 1250 / 1250 1250 / 1250 Other: # Voids 1 # Bowel Movements 0 0 Assessment and Plan - Assessment (1) ST elevation (STEMI) myocardial infarction involving right coronary artery Code(s): I21.11 - ST elevation (STEMI) myocardial infarction involving right coronary artery Status: Acute (2) Stented coronary artery Code(s): Z95.5 - Presence of coronary angioplasty implant and graft Status: Acute (3) Obesity, morbid, BMI 50 or higher Code(s): E66.01 - Morbid (severe) obesity due to excess calories Status: Chronic (4) Hyperglycemia Code(s): R73.9 - Hyperglycemia, unspecified Status: Acute (5) Hypokalemia Code(s): E87.6 - Hypokalemia Status: Acute (6) Acute respiratory failure with hypoxia Code(s): J96.01 - Acute respiratory failure with hypoxia Status: Acute (7) HTN (hypertension) Code(s): I10 - Essential (primary) hypertension Status: Acute (8) Ventricular fibrillation Code(s): I49.01 - Ventricular fibrillation Status: Acute - Attending Attestation Patient seen and examined. I reviewed and agree with the findings and plan presented. Continue post [place] care.
--- NOTE | 2018-05-05 23:52 | MB ---
cc: Hugo Waddell MD, Dannie E MD DATE: 05/05/2018 The patient admitted to the service of Dr. Salome Goss REASON FOR CONSULTATION: Management of medical problems. BRIEF HISTORY: This patient is a 57-year-old black female who had presented to [facility] with severe and unstable chest pain. The patient had been found with a STEMI and underwent cardiac catheterization with placement of a stent in the coronary artery. The patient is now status post stent placement and is to be followed for management of her medical problems. ALLERGIES: LISINOPRIL. HOME MEDICATIONS: 1. Triamterene/HCTZ 37.5/25 one p.o. daily. 2. Doxazosin 8 mg 1 p.o. daily. 3. Losartan 100 mg 1 p.o. daily. 4. Amlodipine 10 mg 1 p.o. daily. 5. Potassium chloride 10 mEq 1 p.o. t.i.d. PAST MEDICAL HISTORY: 1. Hypertension, 2. Diabetes mellitus type 2. 3. Morbid obesity. 4. Congestive heart failure, 5. Chronic kidney disease, stage II. PAST SURGICAL HISTORY: Hiatal hernia repair, gastric bypass surgery, ankle surgery. FAMILY AND SOCIAL HISTORY: This patient is single. She is of nonsmoking, nondrinking status. The patient makes no use of recreational drugs. Mother is secondary to metastatic breast cancer. Father is secondary to coronary artery disease and congestive heart failure. She has family members also with history of hypertension as well as diabetes mellitus. REVIEW OF SYSTEMS: GENERAL: The patient initially presented with crushing chest pain, nausea and diaphoresis. CARDIAC: See history of present illness. RESPIRATORY: Dyspnea on exertion recently. No history of recent pneumonia. GASTROINTESTINAL: Recent nausea. No major changes in bowel habits. MUSCULOSKELETAL: She has some stiffness involving her knees. No recent trauma. NEUROLOGIC: No true syncope, vertigo or paresthesias. PHYSICAL EXAMINATION: GENERAL: The patient is alert and well oriented to time, person and place. HEENT: The head is atraumatic and normocephalic with pupils equal and reactive. The oropharynx and nasal passages are clear. NECK: Good range of motion and supple in character. No carotid bruits, thyromegaly, jugular venous distention, or masses. HEART: Regular rhythm with S1 and S2 distinct. LUNGS: Appear clear bilaterally to auscultation. ABDOMEN: Soft in character and nontender in its presentation. No masses are palpated. The abdomen has obese character. BACK: Good mobility of the spine, without evidence of any costovertebral angle tenderness or sacral edema. EXTREMITIES:Good range of motion with trace edema of the distal aspect of the lower extremities bilaterally. Peripheral pulses are at 3+/4+ symmetrically. NEUROLOGIC: Limited exam was done, per the patient's ability at this time. She is displaying no lateralizing focal motor deficits to gross. SKIN: Appears warm and dry in its presentation. No obvious open lesions to exam. ASSESSMENT: 1. ST elevation myocardial infarction. 2. Coronary artery disease. 3. PTCA with stent placement. 4. Hypertension. 5. Diabetes mellitus type 2. 6. Hyperlipidemia. 7. Obesity. PLAN AND RECOMMENDATION: 1. The patient will continue with aggressive post coronary artery stent placement. 2. Close monitoring of blood pressure status. 3. Continue with the current medication regimen. 4. Advance activity slowly. 5. Deep vein thrombosis, pulmonary embolism, and peptic ulcer disease prophylaxis as indicated. MD GRACIELA Wright/ , 11:13 PM , 11:50 PM
[2018-05-06] MEDS: Insulin NovoLOG Aspart Correctional Sugar Inj SQ SCH ×2 (01:30→09:44)
[2018-05-06] MEDS: Tirofiban Inj 12,500 MCG/250 ML PLAST..BAG IV.CONT SCH (01:31)
[2018-05-06] MEDS: Chlorhexidine Gluconate 2% 1 Pack (2 Cloths) TOPICAL SCH (04:06)
--- NOTE | 2018-05-06 08:46 | P.PNCA ---
<Mary Roberts N - Last Filed: 05/06/18 08:37> Subjective Interval history: Pt sitting on side of bed. Pt denies any CP, pressure, palpitations, dizziness or SOB. Pt states she is sore when she starts to move around. Physical Exam Vital signs: Vital Signs 05/05/18 11:50 05/05/18 14:00 05/05/18 15:52 Temperature 97.5 F L 98.9 F Pulse Rate 71 69 74 Respiratory Rate 24 23 Blood Pressure 147/70 H 113/73 Pulse Oximetry 97 05/05/18 18:00 05/05/18 20:00 05/05/18 20:38 Temperature 98.8 F Pulse Rate 73 74 78 Respiratory Rate 20 Blood Pressure 110/77 Pulse Oximetry 96 05/05/18 22:00 05/05/18 23:00 05/06/18 00:00 Temperature Pulse Rate 74 76 72 Respiratory Rate Blood Pressure Pulse Oximetry 05/06/18 00:13 05/06/18 01:00 05/06/18 02:00 Temperature 98.8 F Pulse Rate 72 68 69 Respiratory Rate 20 Blood Pressure 99/64 L Pulse Oximetry 05/06/18 03:00 05/06/18 04:02 05/06/18 05:00 Temperature 98.5 F Pulse Rate 70 72 69 Respiratory Rate 20 Blood Pressure 103/71 Pulse Oximetry 94 L 05/06/18 06:00 05/06/18 07:00 Temperature 98.7 F Pulse Rate 69 70 Respiratory Rate 16 Blood Pressure 111/75 Pulse Oximetry Intake & Output 05/05/18 05/06/18 05/06/18 18:59 06:59 18:59 Intake Total 1390 / 1390 750 / 750 Output Total 1250 / 1250 350 / 350 Balance 140 / 140 400 / 400 Weight 127.9 kg Intake: IV 1150 / 1150 250 / 250 Cordarone Inj 450 MG In D5W Inj 250 / 250 241 ML @ 1 MG/MIN 33.33 mls/hr IV.CONT .Q7H31M [facility]EENA Rx#: [id number] KCl Inj 20 MEQ In LR 1000 mL 400 / 400 Inj 1,000 ML @ 75 mls/hr IV. CONT .[id number] VEENA Rx#:[id number] Aggrastat Inj 12,500 mcg In 250 250 / 250 ml @ 11.4 mls/hr IV.CONT . [id number] VEENA Rx#:[id number] KCl 20 mEq Premix Inj 20 meq In 100 / 100 100 ml @ 50 mls/hr IV.SIG Q2H PRN Rx#:[id number] Oral 240 / 240 500 / 500 Oral Supplement 0 / 0 Output: Urine 1250 / 1250 350 / 350 Other: # Voids 1 Date of Last Bowel Movement 05/05/18 # Bowel Movements 0 - Constitutional no acute distress - Routine HEENT Exam Head: Present: normocephalic Eye: Present: PERRL ENT: Present: mucous membranes moist - Routine Neck Exam Present: supple - Routine Respiratory Exam Present: CTA bilaterally - Routine Cardiovascular Exam Present: RRR, S1, S2 - Routine Abdominal Exam Present: soft - Routine Extremities Exam Present: full ROM, pulses intact, normal capillary refill. Absent: edema - Routine Skin Exam Present: intact - Routine Neurological Exam Present: oriented X3 - Detailed Neurological Exam: Coma Scale Eye Opening: Spontaneous Verbal Response: Oriented Motor Response: Obey commands Mona Coma Scale Total: 15 - Routine Psychiatric Exam Present: normal affect Assessment and Plan - Assessment (1) ST elevation (STEMI) myocardial infarction involving right coronary artery Code(s): I21.11 - ST elevation (STEMI) myocardial infarction involving right coronary artery Status: Acute (2) Stented coronary artery Code(s): Z95.5 - Presence of coronary angioplasty implant and graft Status: Acute (3) Obesity, morbid, BMI 50 or higher Code(s): E66.01 - Morbid (severe) obesity due to excess calories Status: Chronic (4) Hyperglycemia Code(s): R73.9 - Hyperglycemia, unspecified Status: Acute (5) Hypokalemia Code(s): E87.6 - Hypokalemia Status: Acute (6) Acute respiratory failure with hypoxia Code(s): J96.01 - Acute respiratory failure with hypoxia Status: Acute (7) HTN (hypertension) Code(s): I10 - Essential (primary) hypertension Status: Acute (8) Ventricular fibrillation Code(s): I49.01 - Ventricular fibrillation Status: Acute - Plan No arrhythmias or CHF symptoms noted. Groin site is stable with no signs of hematoma or bleeding. NSR on monitor, VSS. Pt currently on RA. Continue ASA, Effient, Coreg, atorvastatin. Continue post [place] care. Pt's potassium level 3.4 yesterday morning. BMP ordered to re-check potassium level. Potassium replacement orders already in place. Increase activity as tolerated. The patient was seen and evaluated by Dr. Bustamante who participated in are, management and decision making. <Salazar Bustamante - Last Filed: 05/06/18 15:09> Physical Exam Vital signs: Vital Signs 05/05/18 15:52 05/05/18 18:00 05/05/18 20:00 Temperature 98.9 F Pulse Rate 74 73 74 Respiratory Rate 23 Blood Pressure 113/73 Pulse Oximetry 97 05/05/18 20:38 05/05/18 22:00 05/05/18 23:00 Temperature 98.8 F Pulse Rate 78 74 76 Respiratory Rate 20 Blood Pressure 110/77 Pulse Oximetry 96 05/06/18 00:00 05/06/18 00:13 05/06/18 01:00 Temperature 98.8 F Pulse Rate 72 72 68 Respiratory Rate 20 Blood Pressure 99/64 L Pulse Oximetry 05/06/18 02:00 05/06/18 03:00 05/06/18 04:02 Temperature 98.5 F Pulse Rate 69 70 72 Respiratory Rate 20 Blood Pressure 103/71 Pulse Oximetry 94 L 05/06/18 05:00 05/06/18 06:00 05/06/18 07:00 Temperature 98.7 F Pulse Rate 69 69 72 Respiratory Rate 16 Blood Pressure 111/75 Pulse Oximetry 05/06/18 09:00 05/06/18 10:00 05/06/18 11:00 Temperature 98.6 F Pulse Rate 74 72 74 Respiratory Rate 16 Blood Pressure 100/67 Pulse Oximetry 95 05/06/18 12:00 05/06/18 13:00 05/06/18 14:00 Temperature Pulse Rate 66 74 72 Respiratory Rate Blood Pressure Pulse Oximetry Intake & Output 05/05/18 05/06/18 05/06/18 18:59 06:59 18:59 Intake Total 1390 / 1390 750 / 750 Output Total 1250 / 1250 350 / 350 Balance 140 / 140 400 / 400 Weight 281 lb 15.539 oz Intake: IV 1150 / 1150 250 / 250 Cordarone Inj 450 MG In D5W Inj 250 / 250 241 ML @ 1 MG/MIN 33.33 mls/hr IV.CONT .Q7H31M [facility]NA Rx#: [id number] KCl Inj 20 MEQ In LR 1000 mL 400 / 400 Inj 1,000 ML @ 75 mls/hr IV. CONT .[id number] [facility]EENA Rx#:[id number] Aggrastat Inj 12,500 mcg In 250 250 / 250 ml @ 11.4 mls/hr IV.CONT . [id number] [facility]NA Rx#:[id number] KCl 20 mEq Premix Inj 20 meq In 100 / 100 100 ml @ 50 mls/hr IV.SIG Q2H PRN Rx#:[id number] Oral 240 / 240 500 / 500 Oral Supplement 0 / 0 Output: Urine 1250 / 1250 350 / 350 Other: # Voids 1 Date of Last Bowel Movement 05/05/18 # Bowel Movements 0 Assessment and Plan - Assessment (1) ST elevation (STEMI) myocardial infarction involving right coronary artery Code(s): I21.11 - ST elevation (STEMI) myocardial infarction involving right coronary artery Status: Acute (2) Stented coronary artery Code(s): Z95.5 - Presence of coronary angioplasty implant and graft Status: Acute (3) Obesity, morbid, BMI 50 or higher Code(s): E66.01 - Morbid (severe) obesity due to excess calories Status: Chronic (4) Hyperglycemia Code(s): R73.9 - Hyperglycemia, unspecified Status: Acute (5) Hypokalemia Code(s): E87.6 - Hypokalemia Status: Acute (6) Acute respiratory failure with hypoxia Code(s): J96.01 - Acute respiratory failure with hypoxia Status: Acute (7) HTN (hypertension) Code(s): I10 - Essential (primary) hypertension Status: Acute (8) Ventricular fibrillation Code(s): I49.01 - Ventricular fibrillation Status: Acute - Attending Attestation Patient seen and examined. I reviewed and agree with the findings and plan presented. Continue amio loading. Replace K and closely monitor. Continue Effient and ASA. Continue beta aksie. Continue high dose atorvastatin. Anticipate discharge in 48 hrs if remains stable.
[2018-05-06] MEDS: Acetaminophen 325 MG Tablet PO PRN ×3 (09:37→21:34)
[2018-05-06] MEDS: Famotidine 20 MG Tablet PO SCH ×2 (09:38→21:35)
[2018-05-06] MEDS: Carvedilol 6.25 MG Tablet PO SCH (09:38)
[2018-05-06] MEDS: Senna/Docusate Sodium 8.6/50 MG Tablet PO SCH ×2 (09:45→21:35)
[2018-05-06 12:07] LABS: Calcium 8.9 mg/dL (8.5-10.1)
[2018-05-06 12:17] LABS: Potassium 2.7 meq/L (3.5-5.1)
[2018-05-06] MEDS ORDERED: Amiodarone 200 MG Tablet PO ONE (13:45)
--- NOTE | 2018-05-06 16:22 | P.PNIM ---
Subjective Interval history: She is sitting up on the side of the bed. She was seen by Cardiology earlier today. She denies any chest pain or shortness of breath at rest or with any mild exertion. She appears to be tolerating the current medication regimen well. Potassium was found to be low and repletion was done. Physical Exam Vital signs: Vital Signs 05/05/18 18:00 05/05/18 20:00 05/05/18 20:38 Temperature 98.8 F Pulse Rate 73 74 78 Respiratory Rate 20 Blood Pressure 110/77 Pulse Oximetry 96 05/05/18 22:00 05/05/18 23:00 05/06/18 00:00 Temperature Pulse Rate 74 76 72 Respiratory Rate Blood Pressure Pulse Oximetry 05/06/18 00:13 05/06/18 01:00 05/06/18 02:00 Temperature 98.8 F Pulse Rate 72 68 69 Respiratory Rate 20 Blood Pressure 99/64 L Pulse Oximetry 05/06/18 03:00 05/06/18 04:02 05/06/18 05:00 Temperature 98.5 F Pulse Rate 70 72 69 Respiratory Rate 20 Blood Pressure 103/71 Pulse Oximetry 94 L 05/06/18 06:00 05/06/18 07:00 05/06/18 09:00 Temperature 98.7 F Pulse Rate 69 72 74 Respiratory Rate 16 Blood Pressure 111/75 Pulse Oximetry 05/06/18 10:00 05/06/18 11:00 05/06/18 12:00 Temperature 98.6 F Pulse Rate 72 74 66 Respiratory Rate 16 Blood Pressure 100/67 Pulse Oximetry 95 05/06/18 13:00 05/06/18 14:00 05/06/18 15:17 Temperature 98.7 F Pulse Rate 74 72 70 Respiratory Rate 16 Blood Pressure 91/60 L Pulse Oximetry Intake & Output 05/05/18 05/06/18 05/06/18 18:59 06:59 18:59 Intake Total 1390 / 1390 750 / 750 Output Total 1250 / 1250 350 / 350 Balance 140 / 140 400 / 400 Weight 127.9 kg Intake: IV 1150 / 1150 250 / 250 Cordarone Inj 450 MG In D5W Inj 250 / 250 241 ML @ 1 MG/MIN 33.33 mls/hr IV.CONT .[id number] [facility] Rx#: [id number] KCl Inj 20 MEQ In LR 1000 mL 400 / 400 Inj 1,000 ML @ 75 mls/hr IV. CONT .[id number] [facility] Rx#:[id number] Aggrastat Inj 12,500 mcg In 250 250 / 250 ml @ 11.4 mls/hr IV.CONT . [id number] [facility] Rx#:[id number] KCl 20 mEq Premix Inj 20 meq In 100 / 100 100 ml @ 50 mls/hr IV.SIG Q2H PRN Rx#:[id number] Oral 240 / 240 500 / 500 Oral Supplement 0 / 0 Output: Urine 1250 / 1250 350 / 350 Other: # Voids 1 Date of Last Bowel Movement 05/05/18 # Bowel Movements 0 - Constitutional no acute distress - Routine HEENT Exam Head: Present: normocephalic, atraumatic Eye: Present: EOMI, PERRL, conjunctivae pink ENT: Present: mucous membranes moist, nares patent - Routine Neck Exam Present: supple - Routine Respiratory Exam Present: CTA bilaterally - Routine Cardiovascular Exam Present: RRR, S1, S2 - Routine Abdominal Exam Present: soft, normoactive bowel sounds - Routine Extremities Exam Present: full ROM, pulses intact - Routine Skin Exam Present: dry, warm - Routine Neurological Exam Present: alert, oriented X3 Results - Labs CBC & Chem 7: 05/05/18 06:58 05/06/18 10:42 Laboratory Results - last 24 hr 05/05/18 05/06/18 05/06/18 18:04 00:08 06:14 Sodium Potassium Chloride Carbon Dioxide Anion Gap BUN Creatinine Estimated GFR POC Glucose 179 H 109 92 Random Glucose Calcium 05/06/18 05/06/18 10:42 12:02 Sodium 143 Potassium 2.7 L* Chloride 103 Carbon Dioxide 27.0 Anion Gap 13 BUN 18 Creatinine 1.13 H Estimated GFR 60 L POC Glucose 82 Random Glucose 157 H Calcium 8.9 D Assessment and Plan - Assessment (1) Stented coronary artery Code(s): Z95.5 - Presence of coronary angioplasty implant and graft Status: Acute (2) ST elevation myocardial infarction (STEMI) Code(s): I21.3 - ST elevation (STEMI) myocardial infarction of unspecified site Status: Acute (3) Hypokalemia Code(s): E87.6 - Hypokalemia Status: Acute (4) Acute respiratory failure with hypoxia Code(s): J96.01 - Acute respiratory failure with hypoxia Status: Acute (5) HTN (hypertension) Code(s): I10 - Essential (primary) hypertension Status: Acute (6) Obesity, morbid, BMI 50 or higher Code(s): E66.01 - Morbid (severe) obesity due to excess calories Status: Chronic - Plan 1. Continue with the current medication regimen. 2. Slowly advance activity as tolerated. 3. Cardiology follows. 4. Follow up laboratory assessment. 5. DVT, PE and PUD prophylaxis. (2) ST elevation myocardial infarction (STEMI) Qualifiers: Involved coronary artery: unspecified coronary artery Qualified Code(s): I21.3 - ST elevation (STEMI) myocardial infarction of unspecified site
[2018-05-06 19:04] LABS: Potassium 3.3 meq/L (3.5-5.1)
[2018-05-06 19:12] LABS: Carbon Dioxide 26.9 meq/L (21.0-32.0); Magnesium 2.1 mg/dL (1.5-2.5)
[2018-05-06] MEDS ORDERED: Amiodarone 200 MG Tablet PO SCH (21:00)
[2018-05-07] MEDS: Carvedilol 6.25 MG Tablet PO SCH ×3 (00:35→22:08)
[2018-05-07 05:33] LABS: Baso % (Auto) 0.4 % (0.0-2.0); Eos # (Auto) 0.3 th/mm3 (0.0-0.4); Eos % (Auto) 2.4 % (0.0-4.0); Hemoglobin 11.5 gm/dL (11.6-15.3); Lymph # (Auto) 1.1 th/mm3 (1.0-4.8); Lymph % (Auto) 10.4 % (9.0-44.0); Mean Corpuscular HGB Conc 32.9 % (32.0-36.0); Mean Corpuscular Hemoglobin 26.2 pg (27.0-34.0); Mean Corpuscular Volume 79.5 fL (80.0-100.0); Mean Platelet Volume 7.5 fL (7.0-11.0); Mono # (Auto) 0.8 th/mm3 (0.0-0.9); Mono % (Auto) 7.9 % (0.0-8.0); Neut # (Auto) 8.1 th/mm3 (1.8-7.7); Neut % (Auto) 78.9 % (16.0-70.0); Platelet Count 244 th/mm3 (150-450); Red Cell Distribution Width 15.5 % (11.6-17.2); White Blood Count 10.3 th/mm3 (4.0-11.0)
[2018-05-07 05:46] LABS: Calcium 8.5 mg/dL (8.5-10.1); Carbon Dioxide 27.9 meq/L (21.0-32.0); Potassium 3.3 meq/L (3.5-5.1)
--- NOTE | 2018-05-07 10:30 | P.PNCA ---
<Shadeed,January - Last Filed: 05/07/18 10:33> Subjective Interval history: Pleasant obese female, sitting up in chair. She reports feeling well this AM. She denies any chest pain or SOB. She has been up and walked to the bathroom, tolerated well. Her groin has healed well, no signs of infection or bleeding. Physical Exam Vital signs: Vital Signs 05/06/18 11:00 05/06/18 12:00 05/06/18 13:00 Temperature 98.6 F Pulse Rate 72 66 74 Respiratory Rate 16 Blood Pressure 100/67 Pulse Oximetry 95 05/06/18 14:00 05/06/18 15:00 05/06/18 15:17 Temperature 98.7 F Pulse Rate 72 68 70 Respiratory Rate 16 Blood Pressure 91/60 L Pulse Oximetry 05/06/18 17:10 05/06/18 18:03 05/06/18 19:00 Temperature Pulse Rate 72 78 66 Respiratory Rate 18 Blood Pressure 90/56 L Pulse Oximetry 96 05/06/18 20:00 05/06/18 21:00 05/06/18 22:00 Temperature Pulse Rate 68 76 66 Respiratory Rate Blood Pressure Pulse Oximetry 05/06/18 23:00 05/07/18 00:00 05/07/18 01:00 Temperature Pulse Rate 66 59 L 62 Respiratory Rate 16 Blood Pressure 90/56 L Pulse Oximetry 95 05/07/18 02:00 05/07/18 03:00 05/07/18 04:00 Temperature Pulse Rate 56 L 62 64 Respiratory Rate 16 Blood Pressure Pulse Oximetry 05/07/18 05:00 05/07/18 06:00 Temperature Pulse Rate 65 64 Respiratory Rate Blood Pressure Pulse Oximetry Intake & Output 05/06/18 05/07/18 05/07/18 18:59 06:59 18:59 Intake Total 70 / 70 240 / 240 Output Total 200 / 200 150 / 150 Balance -130 / -130 90 / 90 Weight 129 kg Intake: Oral 70 / 70 240 / 240 Output: Urine 200 / 200 150 / 150 Other: Date of Last Bowel Movement 05/06/18 - Constitutional no acute distress, obese, cooperative - Routine HEENT Exam Head: Present: normocephalic, atraumatic Eye: Present: PERRL ENT: Present: mucous membranes moist - Routine Neck Exam Present: supple - Routine Respiratory Exam Present: CTA bilaterally - Routine Cardiovascular Exam Present: RRR - Routine Abdominal Exam Present: soft - Routine Extremities Exam Comments: No edema - Routine Skin Exam Present: intact - Routine Neurological Exam Present: alert, oriented X3 - Detailed Neurological Exam: Coma Scale Eye Opening: Spontaneous Verbal Response: Oriented Motor Response: Obey commands [place] Coma Scale Total: 15 - Routine Psychiatric Exam Present: normal affect, normal thought process, good judgment Assessment and Plan - Plan ASHD-status post STEMI Ventricular Fibrillation arrest Hypokalemia -Status post successful thrombectomy, angioplasty and stenting of the right coronary artery. Groin site is stable with no signs of hematoma or bleeding. Continue ASA, -VS Effient, Coreg, atorvastatin. Continue post NM care. Will have patient ambulate in hallway today as tolerated with PT and/or nurse. -Successful defibrillation, ACLS protocol. No arrhythmias or CHF symptoms noted. NSR on monitor. Will continue on Amiodarone. -Potassium level 3.3 this AM. Replacement ordered. The patient was seen and evaluated by Dr. Hastings who participated in care, management and decision making. Code Status: Full code Discussed Condition With: Patient and Nurse <Zulma Hastings - Last Filed: 05/07/18 18:20> Physical Exam Vital signs: Vital Signs 05/06/18 19:00 05/06/18 20:00 05/06/18 21:00 Pulse Rate 66 68 76 Respiratory Rate 18 Blood Pressure 90/56 L Pulse Oximetry 96 05/06/18 22:00 05/06/18 23:00 05/07/18 00:00 Pulse Rate 66 66 59 L Respiratory Rate 16 Blood Pressure 90/56 L Pulse Oximetry 95 05/07/18 01:00 05/07/18 02:00 05/07/18 03:00 Pulse Rate 62 56 L 62 Respiratory Rate 16 Blood Pressure Pulse Oximetry 05/07/18 04:00 05/07/18 05:00 05/07/18 06:00 Pulse Rate 64 65 64 Respiratory Rate Blood Pressure Pulse Oximetry Intake & Output 05/06/18 05/07/18 05/07/18 18:59 06:59 18:59 Intake Total 70 / 70 240 / 240 Output Total 200 / 200 150 / 150 Balance -130 / -130 90 / 90 Weight 129 kg Intake: Oral 70 / 70 240 / 240 Output: Urine 200 / 200 150 / 150 Other: Date of Last Bowel Movement 05/06/18 Assessment and Plan - Assessment (1) ST elevation (STEMI) myocardial infarction involving right coronary artery Code(s): I21.11 - ST elevation (STEMI) myocardial infarction involving right coronary artery Status: Acute Plan: Doing well post stents consider d/c tomorrow (2) Stented coronary artery Code(s): Z95.5 - Presence of coronary angioplasty implant and graft Status: Acute (3) Obesity, morbid, BMI 50 or higher Code(s): E66.01 - Morbid (severe) obesity due to excess calories Status: Chronic (4) Hyperglycemia Code(s): R73.9 - Hyperglycemia, unspecified Status: Acute (5) Hypokalemia Code(s): E87.6 - Hypokalemia Status: Acute (6) Acute respiratory failure with hypoxia Code(s): J96.01 - Acute respiratory failure with hypoxia Status: Acute (7) HTN (hypertension) Code(s): I10 - Essential (primary) hypertension Status: Acute (8) Ventricular fibrillation Code(s): I49.01 - Ventricular fibrillation Status: Acute
[2018-05-07] MEDS: Amiodarone 200 MG Tablet PO SCH ×2 (10:55→22:09)
[2018-05-07] MEDS: Famotidine 20 MG Tablet PO SCH ×2 (10:55→22:07)
[2018-05-07] MEDS: Senna/Docusate Sodium 8.6/50 MG Tablet PO SCH ×2 (10:56→22:07)
[2018-05-07] MEDS: Acetaminophen 325 MG Tablet PO PRN (13:37)
--- NOTE | 2018-05-07 19:23 | P.PNIM ---
Subjective Interval history: She is sitting up on the side of the bed with two of her sisters visiting her. She was seen earlier by Cardiology with the note appreciated. She reports feeling well and without any complaints of shortness of breath, chest pain or palpitations. She appears to be tolerating all of her current medications well. She is tolerating routine ambulatory activity also. Physical Exam Vital signs: Vital Signs 05/06/18 20:00 05/06/18 21:00 05/06/18 22:00 Pulse Rate 68 76 66 Respiratory Rate Blood Pressure Pulse Oximetry 05/06/18 23:00 05/07/18 00:00 05/07/18 01:00 Pulse Rate 66 59 L 62 Respiratory Rate 16 Blood Pressure 90/56 L Pulse Oximetry 95 05/07/18 02:00 05/07/18 03:00 05/07/18 04:00 Pulse Rate 56 L 62 64 Respiratory Rate 16 Blood Pressure Pulse Oximetry 05/07/18 05:00 05/07/18 06:00 05/07/18 07:00 Pulse Rate 65 64 68 Respiratory Rate Blood Pressure Pulse Oximetry 05/07/18 08:00 05/07/18 09:00 05/07/18 10:00 Pulse Rate 70 72 82 Respiratory Rate Blood Pressure Pulse Oximetry 05/07/18 11:00 05/07/18 12:00 05/07/18 13:00 Pulse Rate 73 82 74 Respiratory Rate Blood Pressure Pulse Oximetry 05/07/18 14:00 05/07/18 15:00 05/07/18 16:00 Pulse Rate 66 63 62 Respiratory Rate Blood Pressure Pulse Oximetry 05/07/18 17:00 05/07/18 18:00 Pulse Rate 62 78 Respiratory Rate Blood Pressure Pulse Oximetry Intake & Output 05/07/18 05/07/18 05/08/18 06:59 18:59 06:59 Intake Total 240 / 240 Output Total 150 / 150 Balance 90 / 90 Weight 129 kg Intake: Oral 240 / 240 Output: Urine 150 / 150 Other: Date of Last Bowel Movement 05/06/18 - Constitutional no acute distress - Routine HEENT Exam Head: Present: normocephalic, atraumatic Eye: Present: conjunctivae pink ENT: Present: mucous membranes moist - Routine Neck Exam Present: supple - Routine Respiratory Exam Present: CTA bilaterally - Routine Cardiovascular Exam Present: RRR - Routine Abdominal Exam Present: soft, normoactive bowel sounds - Routine Extremities Exam Present: full ROM, pulses intact - Routine Skin Exam Present: dry, warm - Routine Neurological Exam Present: alert, oriented X3 Results - Labs CBC & Chem 7: 05/07/18 04:55 05/07/18 04:55 Laboratory Results - last 24 hr 05/07/18 05/07/18 04:55 04:55 WBC 10.3 RBC 4.40 Hgb 11.5 L Hct 35.0 MCV 79.5 L MCH 26.2 L MCHC 32.9 RDW 15.5 Plt Count 244 MPV 7.5 Neut % (Auto) 78.9 H Lymph % (Auto) 10.4 [place] % (Auto) 7.9 Eos % (Auto) 2.4 Baso % (Auto) 0.4 Neut # (Auto) 8.1 H Lymph # (Auto) 1.1 [place] # (Auto) 0.8 Eos # (Auto) 0.3 Baso # (Auto) 0.0 WBC Differential . Differential Comment Auto diff final Sodium 143 Potassium 3.3 L Chloride 106 Carbon Dioxide 27.9 Anion Gap 9 BUN 25 H Creatinine 1.04 H Estimated GFR 66 L Random Glucose 74 Calcium 8.5 Assessment and Plan - Assessment (1) Stented coronary artery Code(s): Z95.5 - Presence of coronary angioplasty implant and graft Status: Acute (2) ST elevation myocardial infarction (STEMI) Code(s): I21.3 - ST elevation (STEMI) myocardial infarction of unspecified site Status: Acute (3) Hypokalemia Code(s): E87.6 - Hypokalemia Status: Acute (4) Acute respiratory failure with hypoxia Code(s): J96.01 - Acute respiratory failure with hypoxia Status: Acute (5) HTN (hypertension) Code(s): I10 - Essential (primary) hypertension Status: Acute (6) Obesity, morbid, BMI 50 or higher Code(s): E66.01 - Morbid (severe) obesity due to excess calories Status: Chronic - Plan 1. Continue with the current medication regimen. 2. Continue to slowly advance activity as tolerated. 3. Cardiology follows. 4. Discharge Planning. 5. DVT, PE and PUD prophylaxis. (2) ST elevation myocardial infarction (STEMI) Qualifiers: Involved coronary artery: unspecified coronary artery Qualified Code(s): I21.3 - ST elevation (STEMI) myocardial infarction of unspecified site
[2018-05-07] MEDS: Tirofiban Inj 12,500 MCG/250 ML PLAST..BAG IV.CONT SCH ×2 (21:24→21:30)
[2018-05-07] MEDS: Chlorhexidine Gluconate 2% 1 Pack (2 Cloths) TOPICAL SCH (21:28)
[2018-05-08] MEDS: Chlorhexidine Gluconate 2% 1 Pack (2 Cloths) TOPICAL SCH (03:14)
--- NOTE | 2018-05-08 09:07 | P.PNCA ---
<Shadeed,January - Last Filed: 05/08/18 09:01> Subjective Interval history: Patient up ambulating in room this AM. She denies any cardiac complaints. Reports feeling well. No chest pain, SOB, or dizziness. Groin has healed. No signs of infection or bleeding. Physical Exam Vital signs: Vital Signs 05/07/18 10:00 05/07/18 11:00 05/07/18 12:00 Temperature 98.9 F Pulse Rate 82 74 82 Respiratory Rate 18 Blood Pressure 102/64 Pulse Oximetry 98 05/07/18 13:00 05/07/18 14:00 05/07/18 15:00 Temperature 99 F Pulse Rate 74 66 70 Respiratory Rate 16 Blood Pressure 115/54 L Pulse Oximetry 98 05/07/18 16:00 05/07/18 17:00 05/07/18 18:00 Temperature Pulse Rate 62 62 78 Respiratory Rate Blood Pressure Pulse Oximetry 05/07/18 19:00 05/07/18 20:00 05/07/18 21:00 Temperature 98.1 F Pulse Rate 97 H 62 66 Respiratory Rate 16 Blood Pressure 124/94 H Pulse Oximetry 100 05/07/18 22:00 05/07/18 23:00 05/08/18 00:00 Temperature Pulse Rate 62 62 62 Respiratory Rate 16 Blood Pressure Pulse Oximetry 100 05/08/18 01:00 05/08/18 02:00 05/08/18 03:00 Temperature Pulse Rate 58 L 60 61 Respiratory Rate 16 Blood Pressure Pulse Oximetry 98 05/08/18 04:00 05/08/18 05:00 05/08/18 06:00 Temperature Pulse Rate 62 63 64 Respiratory Rate Blood Pressure Pulse Oximetry 05/08/18 07:30 Temperature 99.1 F Pulse Rate 64 Respiratory Rate 16 Blood Pressure 121/74 Pulse Oximetry 96 Intake & Output 05/07/18 05/08/18 05/08/18 18:59 06:59 18:59 Weight 143 kg Other: Date of Last Bowel Movement 05/07/18 05/07/18 05/07/18 - Constitutional no acute distress - Routine HEENT Exam Head: Present: normocephalic, atraumatic Eye: Present: PERRL ENT: Present: mucous membranes moist - Routine Neck Exam Present: supple - Routine Respiratory Exam Present: CTA bilaterally - Routine Cardiovascular Exam Present: RRR - Routine Abdominal Exam Present: soft Comments: obese - Routine Extremities Exam Comments: no edema - Routine Skin Exam Present: intact - Routine Neurological Exam Present: alert, oriented X3 - Detailed Neurological Exam: Coma Scale Eye Opening: Spontaneous Verbal Response: Oriented Motor Response: Obey commands [place] Coma Scale Total: 15 - Routine Psychiatric Exam Present: normal affect Assessment and Plan - Plan ASHD-status post STEMI Ventricular Fibrillation arrest Hypokalemia -Status post successful thrombectomy, angioplasty and stenting of the right coronary artery. Groin site is stable with no signs of hematoma or bleeding. Continue ASA, Effient, Coreg, atorvastatin. Patient is cleared from cardiology for discharge home once ok'd with Dr. Waddell. Discussed activity restrictions in detail with patient. Prescriptions written and placed on chart. Advised to follow up in office in 2 weeks. -Successful defibrillation, ACLS protocol. No arrhythmias or CHF symptoms noted. NSR on monitor. Will continue on Amiodarone, currently on loading dose. -Pending AM BMP results. -Patient is cleared from cardiology for discharge home once ok'd with Dr. Waddell. Discussed activity restrictions in detail with patient. New Prescriptions written and placed on chart. Advised to follow up in office in 2 weeks. The patient was seen and evaluated by Dr. Hastings who participated in care, management and decision making. <Zulma Hastings - Last Filed: 05/08/18 14:26> Physical Exam Vital signs: Vital Signs 05/07/18 15:00 05/07/18 16:00 05/07/18 17:00 Temperature 99 F Pulse Rate 70 62 62 Respiratory Rate 16 Blood Pressure 115/54 L Pulse Oximetry 98 05/07/18 18:00 05/07/18 19:00 05/07/18 20:00 Temperature 98.1 F Pulse Rate 78 97 H 62 Respiratory Rate 16 Blood Pressure 124/94 H Pulse Oximetry 100 05/07/18 21:00 05/07/18 22:00 05/07/18 23:00 Temperature Pulse Rate 66 62 62 Respiratory Rate 16 Blood Pressure Pulse Oximetry 100 05/08/18 00:00 05/08/18 01:00 05/08/18 02:00 Temperature Pulse Rate 62 58 L 60 Respiratory Rate Blood Pressure Pulse Oximetry 05/08/18 03:00 05/08/18 04:00 05/08/18 05:00 Temperature Pulse Rate 61 62 63 Respiratory Rate 16 Blood Pressure Pulse Oximetry 98 05/08/18 06:00 05/08/18 07:00 05/08/18 07:30 Temperature 99.1 F Pulse Rate 64 62 64 Respiratory Rate 16 Blood Pressure 121/74 Pulse Oximetry 96 05/08/18 08:00 05/08/18 09:00 05/08/18 10:00 Temperature Pulse Rate 62 72 66 Respiratory Rate Blood Pressure Pulse Oximetry 05/08/18 11:00 05/08/18 11:15 Temperature 98.1 F Pulse Rate 62 61 Respiratory Rate 16 Blood Pressure 100/58 L Pulse Oximetry Intake & Output 05/07/18 05/08/18 05/08/18 18:59 06:59 18:59 Weight 143 kg Other: Date of Last Bowel Movement 05/07/18 05/07/18 05/07/18 Assessment and Plan - Assessment (1) ST elevation (STEMI) myocardial infarction involving right coronary artery Code(s): I21.11 - ST elevation (STEMI) myocardial infarction involving right coronary artery Status: Acute Plan: Overalll doing better, no chest pain OK to d/c. (2) Stented coronary artery Code(s): Z95.5 - Presence of coronary angioplasty implant and graft Status: Acute (3) Obesity, morbid, BMI 50 or higher Code(s): E66.01 - Morbid (severe) obesity due to excess calories Status: Chronic (4) Hyperglycemia Code(s): R73.9 - Hyperglycemia, unspecified Status: Acute (5) Hypokalemia Code(s): E87.6 - Hypokalemia Status: Acute (6) Acute respiratory failure with hypoxia Code(s): J96.01 - Acute respiratory failure with hypoxia Status: Acute (7) HTN (hypertension) Code(s): I10 - Essential (primary) hypertension Status: Acute (8) Ventricular fibrillation Code(s): I49.01 - Ventricular fibrillation Status: Acute
[2018-05-08] MEDS: Carvedilol 6.25 MG Tablet PO SCH (09:22)
[2018-05-08] MEDS: Famotidine 20 MG Tablet PO SCH (09:22)
[2018-05-08] MEDS: Senna/Docusate Sodium 8.6/50 MG Tablet PO SCH (09:22)
[2018-05-08] MEDS: Amiodarone 200 MG Tablet PO SCH (09:23)
--- NOTE | 2018-05-08 14:30 | P.PNIM ---
Subjective Interval history: She is currently doing very well and without any complaints of shortness of breath, chest pain or palpitations. She appears to be with good tolerance of the current medication regimen Physical Exam Vital signs: Vital Signs 05/07/18 15:00 05/07/18 16:00 05/07/18 17:00 Temperature 99 F Pulse Rate 70 62 62 Respiratory Rate 16 Blood Pressure 115/54 L Pulse Oximetry 98 05/07/18 18:00 05/07/18 19:00 05/07/18 20:00 Temperature 98.1 F Pulse Rate 78 97 H 62 Respiratory Rate 16 Blood Pressure 124/94 H Pulse Oximetry 100 05/07/18 21:00 05/07/18 22:00 05/07/18 23:00 Temperature Pulse Rate 66 62 62 Respiratory Rate 16 Blood Pressure Pulse Oximetry 100 05/08/18 00:00 05/08/18 01:00 05/08/18 02:00 Temperature Pulse Rate 62 58 L 60 Respiratory Rate Blood Pressure Pulse Oximetry 05/08/18 03:00 05/08/18 04:00 05/08/18 05:00 Temperature Pulse Rate 61 62 63 Respiratory Rate 16 Blood Pressure Pulse Oximetry 98 05/08/18 06:00 05/08/18 07:00 05/08/18 07:30 Temperature 99.1 F Pulse Rate 64 62 64 Respiratory Rate 16 Blood Pressure 121/74 Pulse Oximetry 96 05/08/18 08:00 05/08/18 09:00 05/08/18 10:00 Temperature Pulse Rate 62 72 66 Respiratory Rate Blood Pressure Pulse Oximetry 05/08/18 11:00 05/08/18 11:15 Temperature 98.1 F Pulse Rate 62 61 Respiratory Rate 16 Blood Pressure 100/58 L Pulse Oximetry Intake & Output 05/07/18 05/08/18 05/08/18 18:59 06:59 18:59 Weight 143 kg Other: Date of Last Bowel Movement 05/07/18 05/07/18 05/07/18 - Constitutional no acute distress - Routine Neck Exam Present: supple - Routine Respiratory Exam Present: CTA bilaterally - Routine Cardiovascular Exam Present: RRR - Routine Abdominal Exam Present: soft, normoactive bowel sounds - Routine Extremities Exam Present: full ROM - Routine Skin Exam Present: intact - Routine Neurological Exam Present: alert, oriented X3 Results - Labs CBC & Chem 7: 05/07/18 04:55 05/07/18 04:55 Assessment and Plan - Assessment (1) Stented coronary artery Code(s): Z95.5 - Presence of coronary angioplasty implant and graft Status: Acute (2) ST elevation myocardial infarction (STEMI) Code(s): I21.3 - ST elevation (STEMI) myocardial infarction of unspecified site Status: Acute (3) Hypokalemia Code(s): E87.6 - Hypokalemia Status: Acute (4) Acute respiratory failure with hypoxia Code(s): J96.01 - Acute respiratory failure with hypoxia Status: Acute (5) HTN (hypertension) Code(s): I10 - Essential (primary) hypertension Status: Acute (6) Obesity, morbid, BMI 50 or higher Code(s): E66.01 - Morbid (severe) obesity due to excess calories Status: Chronic - Plan 1. Continue with the current medication regimen. 2. Activity as tolerated. 3. Cardiology disposition is given. 4. Discharge Planning. 5. DVT, PE and PUD prophylaxis. HOME TODAY WITH CLOSE OUTPATIENT FOLLOW UP (2) ST elevation myocardial infarction (STEMI) Qualifiers: Qualified Code(s): I21.3 - ST elevation (STEMI) myocardial infarction of unspecified site
[2018-05-08 14:51] LABS: Calcium 8.5 mg/dL (8.5-10.1); Carbon Dioxide 26.3 meq/L (21.0-32.0)
[2018-05-17] MEDS ORDERED: Amiodarone 200 MG Tablet PO SCH (09:00)
--- NOTE | 2018-06-29 20:42 | MD ---
cc: Hugo Waddell MD DATE OF DISCHARGE: 05/08/2018 CHIEF COMPLAINT: Chest pain. BRIEF HISTORY AND HOSPITAL COURSE: The patient is a 57-year-old female who presented to [facility] Emergency Department [place], [place]. The patient had a presentation whereby she had started with chest pain that had become rather persistent. When the patient also became severely short of breath. The chest pain had worsened. The occurrences were about 30 minutes prior to arrival to the emergency room. The pain became severe in the central chest area and radiated to the left upper chest region and the left arm. The significant shortness of breath was also associated with some nausea and some diaphoresis. Secondary to the persistence of the symptoms, the patient's status worsened and she was transported by emergency services to [facility] [place] [facility] Emergency Department. Upon arrival, the patient was with a presentation of cardiac chest pain and had become severely short of breath. She was with pending respiratory failure and the patient was with EKG changes consistent with myocardial infarction. She was emergently taken to the cardiac laborer airport maintenance as the patient had several episodes of ventricular fibrillation for cardiac . She responded to the shock interventions prior to being taken to the cardiac catheterization lab. In the cardiac lab, the patient had metal stent placed for the right coronary artery and it was noted that the patient was shocked 6-8 times due to ventricular fibrillation. Postprocedure, the patient had recurrent episodes and was requiring mechanical intubation. At that point, she was stabilized and admitted to the intensive care unit. PERTINENT PHYSICAL FINDINGS: GENERAL: The patient was sedated and on mechanical orotracheal intubation. HEENT: Pupils are equal and reactive to light. Nasal passages appeared clear. NECK: Appeared supple without jugular venous distention, thyromegaly, or carotid bruits. HEART: The rhythm was regular with S1 and S2 distinct and the heart rate in the 60s. No significant cardiac murmur, S3, S4, or friction rub. LUNGS: Few rhonchus sounds were noted to exam with decreased sounds at the lung bases. ABDOMEN: Soft, in character and appeared nontender. The patient's abdominal status was that of being obese. Bowel sounds are present. Vertical scar was noted below the umbilicus that was well healed. EXTREMITIES: Range of motion was present to noxious stimuli. Pulses were 3+/4+. No peripheral edema to exam. NEUROLOGIC: The patient was somewhat drowsy, but alert and appeared to respond to verbal stimuli appropriately. HOSPITAL COURSE: The patient was admitted to the hospital and was followed by the critical care medicine service. Consultation had been made to cardiology to follow the patient was transferred to the cardiac catheterization procedure. She was appropriately on anticoagulation after the cardiac catheterization procedure had been performed. Progressively, the patient was extubated from mechanical ventilatory support and close monitoring was done of cardiac and respiratory status in this regard. The patient remained stable for following commands appropriately. She was then extubated from mechanical ventilatory support and monitored closely with regard to her cardiac and respiratory status. Her activity level was slowly and progressively increased, such that on 05/05/2018 the patient's diet was increased and her activity was also increased with the assistance of physical therapy. As she had shown dramatic improvement, she was transferred from the critical care medicine service to the internal medicine service. She was monitored closely for adjustment of her medications with regard to blood pressure, heart rate, and continue with anticoagulation. On 05/08/2018, the patient appeared comfortable and had mobility with the assistance of physical therapy. She had no complaints of chest pain or shortness of breath. She was considered medically stable for consideration of discharge at that time. DISCHARGE DISPOSITION: DIET: The patient will be on a cardiac diet. MEDICATIONS: 1. Aspirin 81 mg daily. 2. Atorvastatin 40 mg daily. 3. Amlodipine 10 mg daily. 4. Doxazosin 8 mg daily. 5. Potassium chloride 10 mEq t.i.d. 6. Of note, the patient would discontinue the use of losartan and triamterene/HCTZ. ACTIVITY: The patient will resume physical activity as tolerated without any strenuous activities. FOLLOWUP: The patient was recommended to followup with cardiology 2 weeks after discharge and followup with Dr. Waddell on 05/15/2018. MD GRACIELA Wright/vaughn , 05:46 PM , 05:57 PM
== END 2018-05-08 17:35 | disposition home or self-care (01) ==
LOC: NEPE 22:15 → HIMC 05-04 00:01 → HCIS 05-05 19:37
PROVIDERS: ADMIT Internal Medicine; ATTEND Internal Medicine

== ENCOUNTER 2018-11-02 07:15 | Observation (INO) ==
[2018-11-02] MEDS ORDERED: Aluminum/Magnesium/Simethacone Susp 30 ML UDC PO ONE (07:54)
--- NOTE | 2018-11-02 08:00 | ED ---
HPI General Chief Complaint: Chest Pain Stated Complaint: Chest/Arm/Back Pain Complaint Time Seen by Provider: 11/02/18 07:44 History of Present Illness HPI narrative: The patient was seen and examined in the presence of the nurse. This patient complains of a chest burning. It is located in her left mid chest. She also complains of some aching in her left arm. Duration 2 days. Severity is moderate. Patient has history of STEMI and coronary stent which was placed about 5-6 months ago. She has not had any testing since. Her symptoms today feel very different than when she was having that situation. She denies heartburn. No alleviating factors. No exacerbating factors Related Data Home Medications Medication Instructions Recorded Confirmed amlodipine 10 mg PO DAILY 05/03/18 11/02/18 doxazosin 8 mg PO DAILY 05/03/18 11/02/18 potassium chloride 10 meq PO TID 05/03/18 11/02/18 amiodarone 200 mg PO DAILY 11/02/18 11/02/18 carvedilol 6.25 mg PO BID 11/02/18 11/02/18 prasugrel [Effient] 10 mg PO DAILY 11/02/18 11/02/18 Previous Rx's Medication Instructions Recorded aspirin 162 mg PO DAILY tab 05/08/18 atorvastatin 80 mg PO HS #30 tab 05/08/18 Allergies Allergy/AdvReac Type Severity Reaction Status Date / Time lisinopril Allergy Severe Swelling Verified 11/02/18 07:20 of Lip/Tongue/Throat Review of Systems ROS: all other systems reviewed are negative [facility] Medical History Medical History History of stress test (Acute) Hypertension (Acute) Surgical History Surgical History H/O gastric bypass (Acute) H/O hernia repair (Acute) Status post surgical manipulation of ankle joint (Acute) Stented coronary artery (Acute) Social History Social History Substance History: No History of Abuse Second Hand Smoke Exposure: No Smoking Status: Never smoker How Often Do You Have a Drink Containing Alcohol: Never Recent Travel in [facility] within the Last 8 Weeks: No Recent Out of Country Travel within the Last 8 Weeks: No Immunization History Tetanus Immunization: <5 Years Exam Narrative Exam Narrative: GENERAL: Well-nourished, well-developed patient in no apparent distress. SKIN: Focused skin assessment reveals no rash and nodules. Skin is Warm and dry. HEAD: Atraumatic. Normocephalic. EYES: Pupils equal and round. No scleral icterus. No injection or drainage. ENT: No nasal bleeding or discharge. Mucous membranes pink and moist. NECK: Trachea midline. No JVD. CARDIOVASCULAR: Regular rate and rhythm. No murmur appreciated. RESPIRATORY: No accessory muscle use. Clear to auscultation. Breath sounds equal bilaterally. GASTROINTESTINAL: Abdomen soft, non-tender, nondistended. Hepatic and splenic margins not palpable. MUSCULOSKELETAL: No obvious deformities. No clubbing. No cyanosis. No edema. NEUROLOGICAL: Awake and alert. No obvious cranial nerve deficits. Motor grossly within normal limits. Normal speech. PSYCHIATRIC: Appropriate mood and affect; insight and judgment normal. Course Initial Documented Vital Signs Temperature 98.2 F 11/02/18 07:17 Pulse Rate 72 11/02/18 07:17 Respiratory Rate 14 11/02/18 07:17 Blood Pressure 157/102 H 11/02/18 07:17 Pulse Oximetry 98 11/02/18 07:17 Last Documented Vital Signs Temperature 98.2 F 11/02/18 07:17 Pulse Rate 62 11/02/18 07:59 Respiratory Rate 18 11/02/18 07:53 Blood Pressure 170/79 H 11/02/18 07:53 Pulse Oximetry 100 11/02/18 08:05 Medical Decision Making [facility] Narrative Medical decision making narrative: 57-year-old female with CAD who complains of some chest burning. Symptoms are atypical. She has had an aspirin prior to arrival. Her EKG shows sinus rhythm without ST elevation. Chest x-ray and labs have been ordered. Initial ER workup is negative. Recommending 23-hour observation in the chest pain center to rule out cardiac cause of her symptoms. She thought about it for a while and is agreed to stay. She requests that she get a private room upstairs which I will pass on to the bed placement but advised her I could not guarantee anything. Medical Screen Exam Complete: Yes Emergency Medical Condition: Yes Differential Diagnosis Differential Diagnosis: Differential diagnosis includes NM, angina, pericarditis , pleurisy, GERD, anxiety. Medical Records Medical records reviewed: Yes I reviewed the patient's medical records. Reviewed her admission from April 2018 where she had a STEMI Lab Data Lab results reviewed: Yes I reviewed the patient's lab results. Lab results narrative: Labs are normal Result diagrams: 11/02/18 08:10 11/02/18 08:10 Lab Results 11/02/18 11/02/18 11/02/18 Range/Units 08:10 08:10 08:10 WBC 5.7 (4.0-11.0) th/mm3 RBC 4.86 (4.00-5.30) mil/mm3 Hgb 12.9 (11.6-15.3) gm/dL Hct 39.1 (35.0-46.0) % MCV 80.5 (80.0-100.0) fL MCH 26.5 L (27.0-34.0) pg MCHC 32.9 (32.0-36.0) % RDW 17.3 H (11.6-17.2) % Plt Count 232 (150-450) th/mm3 MPV 7.4 (7.0-11.0) fL Neut % (Auto) 73.0 H (16.0-70.0) % Lymph % (Auto) 13.2 (9.0-44.0) % [place] % (Auto) 8.9 H (0.0-8.0) % Eos % (Auto) 4.0 (0.0-4.0) % Baso % (Auto) 0.9 (0.0-2.0) % Neut # (Auto) 4.1 (1.8-7.7) th/mm3 Lymph # (Auto) 0.7 L (1.0-4.8) th/mm3 [place] # (Auto) 0.5 (0.0-0.9) th/mm3 Eos # (Auto) 0.2 (0.0-0.4) th/mm3 Baso # (Auto) 0.1 (0.0-0.2) th/mm3 WBC Differential . Differential Comment Auto diff final Sodium 143 (136-145) meq/L Potassium 3.9 (3.5-5.1) meq/L Chloride 106 (98-107) meq/L Carbon Dioxide 28.8 (21.0-32.0) meq/L Anion Gap 8 (5-15) meq/L BUN 16 (7-18) mg/dL Creatinine 0.89 (0.50-1.00) mg/dL Estimated GFR 79 L (>89) mL/min Random Glucose 92 (74-106) mg/dL Calcium 8.9 (8.5-10.1) mg/dL Total Bilirubin 0.6 (0.2-1.0) mg/dL AST 38 H (15-37) U/L ALT 24 (10-53) U/L Alkaline Phosphatase 114 (45-117) U/L Total Creatine Kinase 163 (26-192) U/L CK-MB (CK-2) 1.7 (0.5-3.6) ng/mL Troponin I Less than 0.02 L (0.02-0.05) ng/mL Total Protein 8.3 H (6.4-8.2) g/dL Albumin 4.0 (3.4-5.0) g/dL Lipase 116 (73-393) U/L Imaging Data My impression: Chest x-ray is noted. Radiologist interpretation is noted suggesting the possibility of mild failure. On a clinical basis there is no evidence of failure. She has clear lungs with room air saturation of 100% and no peripheral edema. Radiologist's impression: Chest X-Ray 11/02/18 07:54 CONCLUSION: Cardiomegaly with mild failure. ECG Data EKG Prior to Arrival: No Attestation: I personally reviewed and interpreted this ECG as follows: Prior ECG tracings: not available for review Interpretation: EKG shows a sinus rhythm at 64 with a NE interval of [address] or ovation or ectopy. Rosanky is normal. Discharge Plan Discharge Disposition Patient Disposition: ED Admit(ED Internal Use Only) Discharge Details Diagnosis: Atypical chest pain Physicians Team ED Provider: Yusuf Wild Primary Care Provider: Hugo Waddell Rxs /Orders / Referrals /Forms Prescriptions: No Action carvedilol 6.25 mg Tablet 6.25 mg PO BID RF: 0 amiodarone 200 mg Tablet 200 mg PO DAILY RF: 0 prasugrel [Effient] 10 mg Tablet 10 mg PO DAILY RF: 0 amlodipine 10 mg Tablet 10 mg PO DAILY RF: 0 doxazosin 4 mg Tablet 8 mg PO DAILY RF: 0 potassium chloride 10 mEq Tablet,Er Particles/Crystals 10 meq PO TID RF: 0 atorvastatin 40 mg Tablet 80 mg PO HS Qty: 30 RF: 0 aspirin 81 mg Tablet,Chewable 162 mg PO DAILY RF: 0 Discharge Instructions Patient Printed Instructions: Chest Pain (ED) Discharge Interventions Interventions: Vital Signs Last Done: 11/02/18 07:53 Status ED Status: With Doctor
[2018-11-02 08:38] LABS: Baso # (Auto) 0.1 th/mm3 (0.0-0.2); Baso % (Auto) 0.9 % (0.0-2.0); Eos # (Auto) 0.2 th/mm3 (0.0-0.4); Hematocrit 39.1 % (35.0-46.0); Hemoglobin 12.9 gm/dL (11.6-15.3); Lymph # (Auto) 0.7 th/mm3 (1.0-4.8); Lymph % (Auto) 13.2 % (9.0-44.0); Mean Corpuscular HGB Conc 32.9 % (32.0-36.0); Mean Corpuscular Hemoglobin 26.5 pg (27.0-34.0); Mean Corpuscular Volume 80.5 fL (80.0-100.0); Mean Platelet Volume 7.4 fL (7.0-11.0); Mono # (Auto) 0.5 th/mm3 (0.0-0.9); Mono % (Auto) 8.9 % (0.0-8.0); Neut # (Auto) 4.1 th/mm3 (1.8-7.7); Platelet Count 232 th/mm3 (150-450); Red Blood Count 4.86 mil/mm3 (4.00-5.30); Red Cell Distribution Width 17.3 % (11.6-17.2); White Blood Count 5.7 th/mm3 (4.0-11.0)
--- NOTE | 2018-11-02 08:51 | XR ---
EXAM DATE: 11/02/2018 8:24 AM EST AGE/SEX: 57 years / Female INDICATIONS: Chest pain started last night CLINICAL DATA: This is the patient's initial encounter. Patient reports that signs and symptoms have been present for 1 day and indicates a pain score of 8/10. MEDICAL/SURGICAL HISTORY: Cardiovascular disease. Coronary artery stent. COMPARISON: [facility] [place] 1V SINGLE AP, 05/05/2018. . FINDINGS: The heart is enlarged. Mild interstitial edema is present. Minimal bibasilar parental changes are not ed. There is no evidence consolidation or pleural effusion. CONCLUSION: Cardiomegaly with mild failure. Electronically signed by: Quinton Adame MD Board Certified Radiologist 11/02/2018 8:50 AM EST
[2018-11-02 08:55] LABS: Alanine Aminotransferase 24 U/L (10-53); Anion Gap 8 meq/L (5-15); Aspartate Aminotransferase 38 U/L (15-37); Blood Urea Nitrogen 16 mg/dL (7-18); Calcium 8.9 mg/dL (8.5-10.1); Carbon Dioxide 28.8 meq/L (21.0-32.0); Chloride 106 meq/L (98-107); Glomerular Filtration Rate 79 mL/min (>89); Glucose,Random 92 mg/dL (74-106); Lipase 116 U/L (73-393); Sodium 143 meq/L (136-145)
[2018-11-02 08:58] LABS: Alkaline Phosphatase 114 U/L (45-117); Total Protein 8.3 g/dL (6.4-8.2)
[2018-11-02 09:00] LABS: Potassium 3.9 meq/L (3.5-5.1)
[2018-11-02 09:03] LABS: Creatine Kinase 163 U/L (26-192)
[2018-11-02 09:19] LABS: Creatine Kinase MB 1.7 ng/mL (0.5-3.6)
[2018-11-02] MEDS ORDERED: Acetaminophen 500 MG Tablet PO PRN (11:11)
--- NOTE | 2018-11-02 12:09 | P.HPCA ---
History of Present Illness Primary Care Physician: Hugo Waddell MD Chief Complaint: Chest pain History of Present Illness: 57 old female with history of coronary artery disease, including cardiac stent, hypertension, and sleep apnea presents the emergency room for further evaluation of chest pain. Onset yesterday 11 AM. Progressively becoming worse throughout the day. Location left anterior chest and left posterior scapula area. Characterized as a burning. Intermittent left arm aching sensation as well. Duration wax and wane in intensity, never fully resolving. No associated symptoms of nausea, vomiting, dyspnea, or diaphoresis. No precipitating factors. No relieving factors. Took x2 sublingual nitroglycerin and antacids without any improvement. Denies regular use of nitroglycerin required. Follows with Dr. Bustamante. STEMI alert April [address] Bustamante twice since. No recent illness, fever, cough or injury. She is active and attends cardiac rehabilitation 3 times weekly for 45 minutes and denies chest pain during exercise. Past cardiac testing 05/04/2018 Cardiac catheterization (Dr. Bustamante) Diagnoses: 1. ST elevation myocardial infarction. 2. Coronary artery disease with total occlusion of right coronary artery with thrombus. 3. Successful thrombectomy, angioplasty and stenting of right coronary artery. 4. Ventricular fibrillation arrest. 5. Successful defibrillation, ACLS protocol for ventricular fibrillation arrest. 4. Overall preserved LV systolic function. Social history Known coronary artery disease and hypertension. Appropriately on statin therapy. No known diabetes. Endorses remote history of diabetes prior to gastric bypass surgery. Lifelong non-smoker. Denies alcohol or recreational drug use. Endorses active lifestyle. Works as a paralegal legal secretary. Attends cardiac rehab Friday , Friday, and Fridays for approximately 45 minutes. Family history Brother myocardial infarction age 48. Sister cardiac stent placed age 50. - Diagnosis (1) Atypical chest pain (2) Coronary artery disease (3) HTN (hypertension) (4) GERD (gastroesophageal reflux disease) Review of Systems All other systems reviewed negative except as stated in [facility] - History History Provided By: Patient - Medical History Medical History: Medical History (Last Updated 11/02/18 @ 13:50 by LUBA Alexis) Coronary artery disease Morbidly obese Sleep apnea Hypertension - Surgical History Surgical History: Surgical History (Last Reviewed 11/02/18 @ 13:50 by LUBA Alexis) Stented coronary artery H/O gastric bypass H/O hernia repair Status post surgical manipulation of ankle joint - Family History Family History: Family History (Last Updated 11/02/18 @ 13:51 by LUBA Alexis) Brother Myocardial infarction Sister History of heart artery stent Father Congestive heart failure - Social History I have reviewed the patient's Social History: Yes - Tobacco History Second Hand Smoke Exposure: No Smoking Status: Never smoker - Alcohol History How Often Do You Have a Drink Containing Alcohol: Never - Substance Use History Substance History: No History of Abuse - Travel History Recent Travel in the [place] Within the Last 8 Weeks: No Recent Travel Out of the Country Within the Last 8 Weeks: No - Immunization History Tetanus Immunization: <5 Years Medications and Allergies Active Medications: Active Medications Acetaminophen (Tylenol) 500 mg PO Q4H PRN PRN Reason: HEADACHE Ondansetron HCl (Zofran Inj) 4 mg IV.PUSH Q6H PRN PRN Reason: NAUSEA Sodium Chloride (Ns Flush) 2 ml IV.FLUSH BID VEENA Sodium Chloride (Ns Flush) 2 ml IV.FLUSH PRN PRN PRN Reason: FLUSH AFTER USING IV ACCESS Allergies Allergy/AdvReac Type Severity Reaction Status Date / Time lisinopril Allergy Severe Swelling Verified 11/02/18 07:20 of Lip/Tongue/Throat Home Medications Medication Instructions Recorded Confirmed Type amlodipine 10 mg PO DAILY 05/03/18 11/02/18 History doxazosin 8 mg PO BID 05/03/18 11/02/18 History potassium chloride 10 meq PO TID 05/03/18 11/02/18 History amiodarone 200 mg PO DAILY 11/02/18 11/02/18 History carvedilol 6.25 mg PO BID 11/02/18 11/02/18 History prasugrel [Effient] 10 mg PO DAILY 11/02/18 11/02/18 History triamterene-hydrochlorothiazid 1 tab PO DAILY 11/02/18 11/02/18 History Exam Vital signs: Vital Signs 11/02/18 07:17 11/02/18 07:53 11/02/18 07:59 Temperature 98.2 F Pulse Rate 72 66 62 Respiratory Rate 14 18 Blood Pressure 157/102 H 170/79 H Pulse Oximetry 98 100 100 11/02/18 08:00 11/02/18 08:05 11/02/18 11:06 Temperature Pulse Rate 53 L Respiratory Rate 20 Blood Pressure 135/76 Pulse Oximetry 100 100 99 Intake & Output 11/01/18 11/02/18 11/02/18 18:59 06:59 18:59 Weight 120.202 kg Narrative: GENERAL: Alert WN, WD, NAD, pleasant, morbidly obese -Bulgarian female HEAD: NC, AT EYES: Sclera clear, conjunctiva without injection CV: RRR, without murmur, rub, gallop, no JVD, S1-S2 RESP: Clear lungs throughout bilateral, no crackles, wheeze, rhonchi, symmetrical chest rise, nonlabored, able to speak in full sentences ABD: Soft, NT, ND, no masses, positive bowel tones EXT: Pulses +2x4, +1 dependent edema MS: Normal tone x4 extremities, nontender, no obvious deformities, full range of motion NEURO: Motor strength 5/5 PSYCH: A+O x3, pleasant affect, appropriate speech, mood, insight and judgment SKIN: Normal turgor, normal texture, no lesions, no rashes, brisk cap refill, even hair distribution Results 11/02/18 08:10 11/02/18 08:10 Cardiac Enzymes 11/02/18 11/02/18 Range/Units 08:10 08:10 AST 38 H (15-37) U/L CK-MB (CK-2) 1.7 (0.5-3.6) ng/mL Troponin I Less than 0.02 L (0.02-0.05) ng/mL CBC 11/02/18 Range/Units 08:10 WBC 5.7 (4.0-11.0) th/mm3 RBC 4.86 (4.00-5.30) mil/mm3 Hgb 12.9 (11.6-15.3) gm/dL Hct 39.1 (35.0-46.0) % Plt Count 232 (150-450) th/mm3 Neut # (Auto) 4.1 (1.8-7.7) th/mm3 Lymph # (Auto) 0.7 L (1.0-4.8) th/mm3 [place] # (Auto) 0.5 (0.0-0.9) th/mm3 Eos # (Auto) 0.2 (0.0-0.4) th/mm3 Baso # (Auto) 0.1 (0.0-0.2) th/mm3 Comprehensive Metabolic Panel 11/02/18 Range/Units 08:10 Sodium 143 (136-145) meq/L Potassium 3.9 (3.5-5.1) meq/L Chloride 106 (98-107) meq/L Carbon Dioxide 28.8 (21.0-32.0) meq/L BUN 16 (7-18) mg/dL Creatinine 0.89 (0.50-1.00) mg/dL Calcium 8.9 (8.5-10.1) mg/dL AST 38 H (15-37) U/L ALT 24 (10-53) U/L Alkaline Phosphatase 114 (45-117) U/L Total Protein 8.3 H (6.4-8.2) g/dL Albumin 4.0 (3.4-5.0) g/dL Intake and Output 11/01/18 11/02/18 11/02/18 22:59 06:59 14:59 Other: Weight 120.202 kg Patient Weight 11/03/18 06:59 Weight 120.202 kg - Imaging and Cardiology Imaging: Impressions Chest X-Ray 11/02/18 07:54 CONCLUSION: Cardiomegaly with mild failure. EKG interpretations - EKG EKG results cardiology: sinus rhythm, normal axis, normal QRS, normal ST/T Caprini VTE Risk Assessment Caprini VTE Risk Assessment: No/Low Risk (score <= 1) Caprini Risk Assessment Model: Point Value = 1 Point Value = 2 Point Value = 3 Point Value = 5 Age 41-60 Minor surgery BMI > 25 kg/m2 Swollen legs Varicose veins or History of unexplained or recurrent spontaneous Oral contraceptives or hormone replacement Sepsis (< 1 month) Serious lung disease, including pneumonia (< 1 month) Abnormal pulmonary function Acute myocardial infarction Congestive heart failure (< 1 month) History of inflammatory bowel disease Medical patient at bed rest Age 61-74 Arthroscopic surgery Major open surgery (> 45 min) Laparoscopic surgery (> 45 min) Malignancy Confined to bed (> 72 hours) Immobilizing plaster cast Central venous access Age >= 75 History of VTE Family history of VTE Factor V Leiden Prothrombin [id number] Lupus anticoagulant Anticardiolipin antibodies Elevated serum homocysteine Heparin-induced thrombocytopenia Other congenital or acquired thrombophilia Stroke (< 1 month) Elective arthroplasty Hip, pelvis, or leg fracture Acute spinal cord injury (< 1 month) Prophylaxis Regimen: Total Risk Factor Score Risk Level Prophylaxis Regimen 0-1 Low Early ambulation 2 Moderate Order ONE of the following: *Sequential Compression Device (SCD) *Heparin 5000 units SQ BID 3-4 Higher Order ONE of the following medications: *Heparin 5000 units SQ TID *Enoxaparin/Lovenox 40 mg SQ daily (WT < 150 kg, CrCl > 30 mL/min) *Enoxaparin/Lovenox 30 mg SQ daily (WT < 150 kg, CrCl > 10-29 mL/min) *Enoxaparin/Lovenox 30 mg SQ BID (WT < 150 kg, CrCl > 30 mL/min) AND/OR *Sequential Compression Device (SCD) 5 or more Highest Order ONE of the following medications: *Heparin 5000 units SQ TID (Preferred with Epidurals) *Enoxaparin/Lovenox 40 mg SQ daily (WT < 150 kg, CrCl > 30 mL/min) *Enoxaparin/Lovenox 30 mg SQ daily (WT < 150 kg, CrCl > 10-29 mL/min) *Enoxaparin/Lovenox 30 mg SQ BID (WT < 150 kg, CrCl > 30 mL/min) AND *Sequential Compression Device (SCD) Assessment and Plan - Assessment (1) Atypical chest pain Code(s): R07.89 - Other chest pain Status: Acute Plan: Mid to chest pain center. Continue ruling out with standard ACS protocol. Will be seen and evaluated by Dr. Reji Ramos. Further disposition to follow. 1520 Dr. Ramos spoke with Dr. Quadrat. Culver for discharge after 2 negative sets of EKGs and cardiac enzymes, follow up in office. (2) Coronary artery disease Code(s): I25.10 - Atherosclerotic heart disease of [place] coronary artery without angina pectoris Status: Chronic Plan: Continue Effient, carvedilol, atorvastatin, and aspirin 162 mg daily. Continue amiodarone for history of ventricular fibrillation. (3) HTN (hypertension) Code(s): I10 - Essential (primary) hypertension Status: Chronic Plan: Continue amlodipine, doxazosin, and triamterene/HCTZ, (4) GERD (gastroesophageal reflux disease) Code(s): K21.9 - Gastro-esophageal reflux disease without esophagitis Status: Acute Plan: GI cocktail given in ER, reports some relief. Consider adding daily regimen upon discharge. (2) Coronary artery disease Qualifiers: Coronary Disease-Associated Artery/Lesion type: [place] artery [place] vs. transplanted heart: [place] heart Associated angina: without angina Qualified Code(s): I25.10 - Atherosclerotic heart disease of [place] coronary artery without angina pectoris (3) HTN (hypertension) Qualifiers: Hypertension type: unspecified Qualified Code(s): I10 - Essential (primary) hypertension (4) GERD (gastroesophageal reflux disease) Qualifiers: Esophagitis presence: esophagitis presence not specified Qualified Code(s): K21.9 - Gastro-esophageal reflux disease without esophagitis
[2018-11-02 13:26] LABS: Creatine Kinase 107 U/L (26-192)
[2018-11-02 15:50] LABS: Creatine Kinase 105 U/L (26-192)
[2018-11-02 15:55] VITALS: BP 124/70; PULSE 55; RESP 18; TEMP 98.4; O2SAT 95
--- NOTE | 2018-11-02 15:56 | ECG ---
Date Performed: 11/02/2018 Time Performed: 07:37:28 PTAGE: 57 years EKG: Sinus rhythm NONSPECIFIC T-WAVE ABNORMALITY BORDERLINE ECG INTERPRETATION BASED ON A DEFAULT AGE OF 40 YEARS PREVIOUS TRACING : 05/03/2018 22.21 Compared to previous tracing, ST elevation has resolv ed. DOCTOR: Reji Ramos Interpretating Date/Time 11/02/2018 15:54:43
[2018-11-02] MEDS ORDERED: Carvedilol 6.25 MG Tablet PO SCH (21:00)
[2018-11-03] MEDS ORDERED: Doxazosin 4 MG Tablet PO SCH (09:00)
[2018-11-03] MEDS ORDERED: amLODIPine 10 MG Tablet PO SCH (09:00)
[2018-11-03] MEDS ORDERED: Amiodarone 200 MG Tablet PO SCH (09:00)
--- NOTE | 2018-11-04 00:42 | ECG ---
Date Performed: 11/02/2018 Time Performed: 12:52:39 PTAGE: 57 years EKG: SINUS BRADYCARDIA NONSPECIFIC ST & T-WAVE ABNORMALITY BORDERLINE ECG PREVIOUS TRACING : 11/02/2018 07.37 Since the previous tracing, no significant change noted DOCTOR: Nikhil Ireland Interpretating Date/Time 11/04/2018 00:41:57
--- NOTE | 2018-11-04 00:55 | ECG ---
Date Performed: 11/02/2018 Time Performed: 15:03:20 PTAGE: 57 years EKG: SINUS BRADYCARDIA NONSPECIFIC T-WAVE ABNORMALITY BORDERLINE ECG PREVIOUS TRACING : 11/02/2018 12.52 Since the previous tracing, no significant change noted DOCTOR: Nikhil Ireland Interpretating Date/Time 11/04/2018 00:54:27
== END 2018-11-02 17:15 | disposition home or self-care (01) ==
LOC: NEDA 07:15 → NEPC 07:15 → NEPFCDU 13:19
PROVIDERS: ADMIT Internal Medicine Cardiovascular Disease; ATTEND Internal Medicine Cardiovascular Disease
DX: Z82.49 Family history of ischemic heart disease and other diseases of the circulatory system; E11.9 Type 2 diabetes mellitus without complications; R07.89 Other chest pain; Z95.5 Presence of coronary angioplasty implant and graft; Z79.82 Long term (current) use of aspirin; K21.9 Gastro-esophageal reflux disease without esophagitis; Z88.8 Allergy status to other drugs, medicaments and biological substances; I25.2 Old myocardial infarction; Z98.84 Bariatric surgery status; I10 Essential (primary) hypertension; G47.30 Sleep apnea, unspecified; I25.10 Atherosclerotic heart disease of native coronary artery without angina pectoris
CPT/HCPCS: 71010; 71045; 80053; 82550; 82552; 83690; 84484; 85025; 93005; 99285; G0378